=== PATIENT | male | born 1955 | race Caucasian/White ===

== ENCOUNTER 2023-02-04 08:43 | Outpatient (OUT) | payer MEDICARE, SELFPAY ==
[2023-02-04 10:10] LABS: Alanine Aminotransferase 34 U/L (16-63); Albumin Globulin Ratio 1.2; Albumin Level 3.7 g/dL (3.4-5.0); Alkaline Phosphatase 92 U/L (46-116); Anion Gap 9.9; Aspartate Amino Transferase 29 U/L (15-37); BUN Creatinine Ratio 15.1; Bilirubin Total 1.1 mg/dL (0.2-1.0); Calcium 8.9 mg/dL (8.5-10.1); Carbon Dioxide 29.3 mmol/L (21.0-32.0); Chloride 105 mmol/L (98-107); Estimated GFR (African America >60 (>=60); Estimated GFR (Non-African Ame >60 (>=60); Glucose 92 mg/dL (74-106); Potassium 4.2 mmol/L (3.5-5.1); Sodium 140 mmol/L (136-145); Total Protein 6.7 g/dL (6.4-8.2)
== END 2023-02-04 08:44 | disposition home or self-care (01) ==
LOC: LAB 08:51
PROVIDERS: PCP Family Medicine; Visit Provider Family Medicine
DX: Z13.1 Encounter for screening for diabetes mellitus (principal)
CPT/HCPCS: 36415; 80053

== ENCOUNTER 2023-02-04 08:56 | Outpatient (OUT) | payer OTHER, SELFPAY ==
[2023-02-04 10:13] LABS: Chol HDL Ratio 2.5; Cholesterol 103 mg/dL (<=200); HDL Cholesterol 41 mg/dL (40-60); Triglycerides 35 mg/dL (<=150)
== END 2023-02-04 08:57 | disposition home or self-care (01) ==
LOC: LAB 08:59
PROVIDERS: PCP Family Medicine
DX: Z13.1 Encounter for screening for diabetes mellitus (principal); I25.10 Atherosclerotic heart disease of native coronary artery without angina pectoris; E78.5 Hyperlipidemia, unspecified
CPT/HCPCS: 36415; 80053; 80061

== ENCOUNTER 2023-12-28 15:23 | Emergency (ER) | payer OTHER, SELFPAY ==
[2023-12-28 15:28] VITALS: BP 167/77; PULSE 71; TEMP 36.6; O2SAT 99; BMI 32.9
--- NOTE | 2023-12-28 15:32 | CT_ITS ---
[address] [address] Patient Name: JT AVILEZ MRN: [id number] date: 1955 Sex: M Assigned Patient Location: ER Current Patient Location: ED.MAIN Accession/Order Number: [id number] Exam Date: 12/28/2023 15:42 Report Date: 12/28/2023 16:02 At the request of: SULEMA MARKHAM Procedure: CT head/brain wo con EXAM: CT scan of the head without contrast. Dose reduction technique used: Automated exposure control and/or adjustment of the mA and/or kV according to patient size and/or use of iterative reconstruction technique. REASON FOR EXAM: trauma COMPARISON: None FINDINGS: No intracranial hemorrhage, mass effect, midline shift, fractures or evidence of acute ischemic infarct. No hydrocephalus. Prominent cisterna magna. Intracranial atherosclerotic calcifications. Sinuses and mastoid air cells are clear. Remainder unremarkable. CT/CT head/brain wo con IMPRESSION: No acute intracranial abnormalities. Electronically authenticated by: DWAIN FALCON Date: 12/28/2023 16:02
--- NOTE | 2023-12-28 15:59 | ED_ITS ---
HPI HPI - Head Injury General Chief complaint: Head Injury Stated complaint: HEAD INJURY Time Seen by Provider: 12/28/23 15:26 Source: patient Mode of arrival: walk-in Limitations: no limitations History of Present Illness HPI Narrative: Patient presents ED after head injury. He said Us know up while things fell off of the shelf And landed on his head. He said the shelf was about 7 feet up and he is about 6 feet tall so he thinks it fell about a foot and landed on the top of his head and cut his head open. No loss of consciousness. He was able to grab a towel and then go next-door for somebody to bring him here to the emergency room. He denies any neck pain nausea vomiting. He got a little woozy when he stood up here to get into the bed. He thought maybe he he was on Plavix but he is not 100% sure if he is on a blood thinner. He is alert and oriented though this time Resting comfortably in the bed Related Data Home Medications ?Medication ?Instructions ?Recorded ?Confirmed aspirin 81 mg tablet,delayed 81 mg PO DAILY 12/28/23 12/28/23 release atorvastatin 80 mg tablet 80 mg PO DAILY 12/28/23 12/28/23 carvedilol 6.25 mg tablet 6.25 mg PO Q12H 12/28/23 12/28/23 Previous Rx's ?Medication ?Instructions ?Recorded oxycodone-acetaminophen 5 mg-325 1 tab PO Q6H #15 tabs 12/28/23 mg tablet (Percocet) Allergies Allergy/AdvReac Type Severity Reaction Status Date / Time tuna AdvReac Intermediate Anaphylaxis Uncoded 12/28/23 15:28 Opioid HPI Opioid Management Most Recent Pain and Opioid Data: No Data to Display Review of Systems ROS Status of ROS 10 or more systems reviewed and unremark able except as noted in history and below Exam Narrative Exam Narrative: General: alert, no acute distress Cardiovascular: regular rate and rhythm, normal peripheral perfusion. Respiratory: Lungs CTA, respirations non labored. Extremities: no deformity, no trauma. Neurological: oriented x 4, LOC appropriate for age. 4 cm laceration to the top of the scalp. No crepitus felt. Patient is neurologically intact. Bleeding is controlled. No cervical spine tenderness Constitutional Vital Signs, click to edit/add: Last Vital Signs Temp 97.8 F 12/28/23 15:28 Pulse 71 12/28/23 15:28 Resp 18 12/28/23 15:28 BP 167/77 H 12/28/23 15:28 Pulse Ox 99 12/28/23 15:28 O2 Del Method Room Air 12/28/23 15:28 Course Vital Signs Vital signs: Vital Signs Temperature 97.8 F 12/28/23 15:28 Pulse Rate 71 12/28/23 15:28 Respiratory Rate 18 12/28/23 15:28 Blood Pressure 167/77 H 12/28/23 15:28 Pulse Oximetry 99 12/28/23 15:28 Oxygen Delivery Method Room Air 12/28/23 15:28 Temperature 97.8 F 12/28/23 15:28 Pulse Rate 71 12/28/23 15:28 Respiratory Rate 18 12/28/23 15:28 Blood Pressure 167/77 H 12/28/23 15:28 Pulse Oximetry 99 12/28/23 15:28 Oxygen Delivery Method Room Air 12/28/23 15:28 MDM - Head Injury MDM Narrative Medical decision making narrative: Patient CT scan was negative for fracture or intracranial hemorrhage. 7 paolo were placed in the scalp laceration. Tetanus shot was updated. Patient instructed to follow-up in 7 to 10 days for staple removal. Take Tylenol Motrin for headache, Percocet was called into the pharmacy for headache pain. Monitor for any neurological changes and return to the ER if worsening symptoms vomiting confusion vision changes or any other concerns. Patient is comfortable care pl an for home. Differential Diagnosis Differential diagnosis: Likely concussion without loss of consciousness, epidural hematoma, closed head injury, subarachnoid hematoma, postconcussion syndrome, subdural hematoma and concussion with loss of consciousness Imaging Data CT scan - head: Radiologist's impression: ITS Impressions Head CT 12/28/23 15:32 IMPRESSION: No acute intracranial abnormalities. Electronically authenticated by: DWAIN FALCON Date: 12/28/2023 16:02 Discharge Plan Discharge Stand Alone Forms: Work/School Release, Portal Instructions Chief Complaint: Head Injury Clinical Impression: Laceration of scalp, Head injury Patient Disposition: Home, Self-Care Time of Disposition Decision: 16:25 Condition: Good Mode of Transportation: Private Vehicle Prescriptions / Home Meds: New oxycodone-acetaminophen [Percocet] 5-325 mg tablet 1 tab PO Q6H Qty: 15 0RF No Action aspirin 81 mg tablet,delayed release (DR/EC) 81 mg PO DAILY atorvastatin 80 mg tablet 80 mg PO DAILY carvedilol 6.25 mg tablet 6.25 mg PO Q12H Print Language: Georgian Instructions: Laceration (ED), Staple Care (ED) Referrals: [facility] [Primary Care Provider] - 1 week Procedures ED Laceration Laceration Laceration 1: Site: scalp Size (cm): 4 Description: linear and stellate Depth: simple, single layer Anesthetic used: with epi Anesthesia technique: local infiltration Amount (ml): 8 Pre-repair: wound explored, irrigated extensively and deep structures intact Skin layer closed with: other (Webb) Size (cm): other (Paolo) Number of sutures: 7
[2023-12-28] MEDS: LIDOCAINE HCL 1%-EPINEPHRINE 1:100,000 20 ML MDV INJ (16:10)
[2023-12-28] MEDS: ADACEL DIPH,PERTUSS(ACELL),TET VAC/PF 0.5 ML ADULT SYRINGE IM (16:33)
== END 2023-12-28 16:44 | disposition home or self-care (01) ==
PROVIDERS: Emergency Provider Emergency Medicine; PCP Family Medicine
DX: S01.01XA Laceration without foreign body of scalp, initial encounter (principal); Z23 Encounter for immunization; W20.8XXA Other cause of strike by thrown, projected or falling object, initial encounter
CPT/HCPCS: 12002; 70450; 90471; 90715; 99284

== ENCOUNTER 2024-01-05 08:49 | Emergency (ER) | payer OTHER, SELFPAY ==
[2024-01-05 08:52] VITALS: BP 129/80; PULSE 75; TEMP 36.6; O2SAT 99; BMI 30.4
--- NOTE | 2024-01-05 09:02 | ED.WOUNDLAC1 ---
HPI - Wound/Laceration General Chief Complaint: Wound/Laceration Stated Complaint: SUTURE REMOVAL Time Seen by Provider: 01/05/24 08:55 Source: patient Mode of arrival: walk-in Limitations: no limitations History of Present Illness HPI narrative: Patient presents to ED for worse staple removal. He was here about a week ago after Something fell on his head and he received paolo. It has been healing well no tenderness no purulent drainage no fevers. He is just here for the staple removal. No other complaints at this time. Related Data Home Medications ?Medication ?Instructions ?Recorded ?Confirmed aspirin 81 mg tablet,delayed 81 mg PO DAILY 12/28/23 12/28/23 release atorvastatin 80 mg tablet 80 mg PO DAILY 12/28/23 12/28/23 carvedilol 6.25 mg tablet 6.25 mg PO Q12H 12/28/23 12/28/23 Previous Rx's ?Medication ?Instructions ?Recorded oxycodone-acetaminophen 5 mg-325 1 tab PO Q6H #15 tabs 12/28/23 mg tablet (Percocet) Allergies Allergy/AdvReac Type Severity Reaction Status Date / Time tuna AdvReac Intermediate Anaphylaxis Uncoded 12/28/23 15:28 Review of Systems ROS Narrative Negative unless otherwise stated above in HPI Exam Narrative Exam Narrative: General: alert, no acute distress Cardiovascular: regular rate and rhythm, normal peripheral perfusion. Respiratory: Lungs CTA, respirations non labored. Extremities: no deformity, no trauma. Neurological: oriented x 4, LOC appropriate for age. Beaver in place in the scalp. Wound is well-healing no surrounding erythema no purulent drainage Constitutional Vital Signs, click to edit/add: Last Vital Signs Temp 97.8 F 01/05/24 08:52 Pulse 75 01/05/24 08:52 Resp 18 01/05/24 08:52 BP 129/80 01/05/24 08:52 Pulse Ox 99 01/05/24 08:52 O2 Del Method Room Air 01/05/24 08:52 Course Vital Signs Vital signs: Vital Signs Temperature 97.8 F 01/05/24 08:52 Pulse Rate 75 01/05/24 08:52 Respiratory Rate 18 01/05/24 08:52 Blood Pressure 129/80 01/05/24 08:52 Pulse Oximetry 99 01/05/24 08:52 Oxygen Delivery Method Room Air 01/05/24 08:52 Temperature 97.8 F 01/05/24 08:52 Pulse Rate 75 01/05/24 08:52 Respiratory Rate 18 01/05/24 08:52 Blood Pressure 129/80 01/05/24 08:52 Pulse Oximetry 99 01/05/24 08:52 Oxygen Delivery Method Room Air 01/05/24 08:52 Discharge Plan Discharge Stand Alone Forms: Work/School Release, Portal Instructions Chief Complaint: Wound/Laceration Clinical Impression: Encounter for removal of paolo Patient Disposition: Home, Self-Care Time of Disposition Decision: 08:59 Mode of Transportation: Private Vehicle Prescriptions / Home Meds: No Action aspirin 81 mg tablet,delayed release (DR/EC) 81 mg PO DAILY atorvastatin 80 mg tablet 80 mg PO DAILY carvedilol 6.25 mg tablet 6.25 mg PO Q12H oxycodone-acetaminophen [Percocet] 5-325 mg tablet 1 tab PO Q6H Qty: 15 0RF Print Language: Cameroonian Instructions: Stitches Removal (ED) Referrals: [facility] [Primary Care Provider] - 1 week Procedures ED Procedure Instructions Procedures Procedures: Beaver removed without difficulty patient tolerated well
== END 2024-01-05 09:14 | disposition home or self-care (01) ==
PROVIDERS: Emergency Provider Emergency Medicine; PCP Family Medicine
DX: S01.01XD Laceration without foreign body of scalp, subsequent encounter (principal); W22.8XXA Striking against or struck by other objects, initial encounter
CPT/HCPCS: 99281

== ENCOUNTER 2024-01-14 06:50 | Outpatient (OUT) | payer OTHER, SELFPAY ==
--- OUTSIDE RECORDS SUMMARY | 2024-01-14 06:54 | XMS_ITS | CCD ---
Author Organization [facility] Care Team Providers Care Development Coach Name Role Phone CARMICHAEL-KOLP, JENNA Unavailable Unavailab le CARMICHAEL-KOLP, JENNA Unavailable Unavailab le LYSTER, FRANKI Unavailable Unavailable CARMICHAEL-KOLP, JENNA Unavailable Unavailab le Carmichael Kolp, Jenna A Unavailable Unavail able Unavailable Unavailable MIRTHA, DR BULLOCK Primary Care Unavailable AIDE NEWTON Admitting Unavailable AIDE NE[place]ON Attending Unavailable LAMAR, AIDE Consulting Unavailable LYSTER, DR DOAN Attending Unavailable LYSTER, DR DOAN Consulting Unavailable MISC, DR BULLOCK Primary Care Unavailable LYSTER, DR DOAN Admitting Unavailable LYSTER, DR DOAN Consulting Unavailable MISC, DR BULLOCK Primary Care Unavailable LYSTER, DR DOAN Admitting Unavailable LYSTER, DR DOAN Attending Unavailable Carmichael Kolp, Dr. Jenna Villalpando Primary Care U tarun LEON, Dr. FRANKI MARX Attending Unavail able LYSTER, Dr. FRANKI MARX Referring Unavail able Carmichael Kolp, Dr. Jenna Villalpando Primary Care U tarun Webster, Dr. York Attending Unavailable Darin, Dr. York Referring Unavailable Carmichael Kolp, Jenna Duong Unavailable [phone] Zaheer Epps MD Primary Care Provider JOSE CARLOS WEBSTER Attending Unavailable ZAHEER EPPS Primary Care Unavailab ZAHEER Carty Attending Unavailable Allergies Allergy Classification Reported Allergen(s) Allergy Type Date of Onset Reaction(s) Facility (7 sources) tuna, unspecified Allergy to substance (finding) [facility] 600 DO Work Phone: (2 sources) Tuna Oil; Translations: [TUNA OIL] Propensity to adverse reactions [address] [place] [address] Medications Current Medications Medication Drug Class(es) Dates Sig (Normalized) Sig (Original) aspirin 81 mg delayed release oral tablet (7 sources) Platelet Aggregation Inhibitor, Nonsteroidal Anti-inflammatory Drug Start: 02-16-2023 take 1 tablet by mouth once daily aspirin 81 mg EC tablet Indications: History of [place] (myocardial infarction) , History of PTCA 2 Take 1 tablet (81 mg) by mouth once daily. 90 tablet 0 02/16/2023 Active Start: 06-17-2021 take 1 tablet by neeru th once daily Aspirin 81 MG Oral Tablet Delayed Release TAKE 1 TABLET BY MOUTH DAILY Quantity: 90 Refills: 3 Ordered: 29-Jan-2022 Jose Carlos Webster MD Start : 17-Jun-2021 Active atorvastatin 80 mg oral tablet (9 sources) HMG-CoA Reductase Inhibitor Start: 02-16-2023 End: 03-10-2024 take 1 tablet by mouth once daily at bedtime atorvastatin (Lipitor) 80 mg tablet Indications: History of PTCA 2 , Hyperlipidemia, unspecified hyperlipidemia type Take 1 tablet (80 mg) by mouth once daily at bedtime. 90 tablet 3 03/11/2023 03/10/2024 Active Start: 07-02-2015 take 1 tablet by neeru th at bedtime Atorvastatin Calcium 80 MG Oral Tablet TAKE 1 TABLET AT BEDTIME. Quantity: 90 Refills: 3 Ordered: 29-Jan-2022 Jose Carlos Webster MD Start : 02-Jul-2015 Active carvedilol 6.25 mg oral tablet (9 sources) alpha-Adrenergic Kyra, beta-Adrenergic Kyra Start: 07-02-2015 End: 03-10-2024 take 1 tablet by mouth twice daily carvedilol (Coreg) 6.25 mg tablet Indications: Atherosclerosis of coronary artery, unspecified vessel or lesion type, unspecified whether angina present, unspecified whether ely shoshone or transplanted heart Take 1 tablet (6.25 mg) by mouth 2 times a day. 180 tablet 3 03/11/2023 03/10/2024 Active nitroglycerin 0.4 mg sublingual tablet (8 sources) Nitrate Vasodilator Start: 07-02-2015 nitroglycerin (Nitrostat) 0.4 mg SL tablet DISSOLVE 1 (ONE) TABLET UNDER THE TONGUE NEEDED FOR CHEST PAIN. MA 0 07/02/2015 Active Start: 07-02-2015 Nitroglycerin 0.4 MG Sublingual Tablet Sublingual DISSOLVE 1 (ONE) TABLET UNDER THE TONGUE NEEDED FOR CHEST PAIN. MA Quantity: 25 Refills: 11 Ordered: 29-Jan-2022 Jose Carlos Webster MD Start : 02-Jul-2015 Active Completed/Discontinued Medications Medication Drug Class(es) Dates Sig (Normalized) Sig (Original) clopidogrel 75 mg oral tablet (8 sources) P2Y12 Platelet Inhibitor Start: 04-12-2017 End: 03-11-2023 take 1 tablet by mouth once daily clopidogrel (Plavix) 75 mg tablet Take 1 tablet (75 mg) by mouth once daily. 0 04/12/2017 03/11/2023 Discontinued (Other) Krill Oil Plus CAPS (1 source) Start: 07-12-2015 Krill Oil Plus CAPS Quantity: 0 Refills: 0 Ordered: 12-Jul-2015 DO Start : 12-Jul-2015 Active prasugrel 10 mg oral tablet (1 source) P2Y12 Platelet Inhibitor Start: 07-02-2015 take 1 tablet by mouth once daily Effient 10 MG Oral Tablet TAKE 1 TABLET EVERY DAY Quantity: 30 Refills: 0 Ordered: 02-Jul-2015 DO Start : 02-Jul-2015 Active traMADol hydrochloride 50 mg oral tablet (1 source) Opioid Agonist Start: 05-19-2017 take 1 tablet by mouth at bedtime as needed traMADol HCl - 50 MG Oral Tablet Take 1 tab at bedtime as needed. Quantity: 20 Refills: 0 Ordered: 19-May-2017 Jenna Luque MD Start : 19-May-2017 Active Problems Active Problems Problem Classification Problem Date Documented Date Episodic/Chronic Acute myocardial infarction (9 sources) Myocardial infarction in recovery phase; Translations: [Subendocardial infarction, initial episode of care] Onset: 01-06-2021 Chronic Coronary atherosclerosis and other heart disease (20 sources) Atherosclerotic heart disease of ely shoshone coronary artery without angina pectoris; Translations: [Coronary atherosclerosis] Onset: 04-12-2017 Chronic Coronary atherosclerosis and other heart disease (9 sources) Post percutaneous transluminal coronary angioplasty; Translations: [Percutaneous transluminal coronary angioplasty status] Onset: 02-15-2023 Episodic Coronary atherosclerosis and other heart disease (1 source) Coronary atherosclerosis and other heart disease Onset: 04-12-2017 Disorders of lipid metabolism (16 sources) Hyperlipidemia; Translations: [Other and unspecified hyperlipidemia] Onset: 06-06-2021 Chronic Other nutritional; endocrine; and metabolic disorders (7 sources) Obesity; Translations: [Obesity, unspecified] Chronic Other nutritional; endocrine; and metabolic disorders (1 source) Body mass index 30+ - obesity; Translations: [Body Mass Index 30.0-30.9, adult] Chronic Other nutritional; endocrine; and metabolic disorders (1 source) Overweight; Translations: [Overweight] Episodic Other screening for suspected conditions (not mental disorders or infectious disease) (7 sources) Patient encounter status; Translations: [Special screening for malignant neoplasms of colon] Episodic Unclassified (2 sources) Athscl heart disease of ely shoshone coronary artery w/o ang pctrs / I25.10(ICD-9) Onset: 04-12-2017 Unclassified (2 sources) Pain in right shoulder / M25.511(ICD-9) Onset: 02-15-2017 Viral infection (1 source) COVID-19; Translations: [COVID-19] Onset: 01-06-2021 Past or Other Problems Problem Classification Problem Date Documented Da te Episodic/Chronic Other aftercare (1 source) 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; Translations: [OTH SEARCH DIRECTOR CURRENT DRUG THERAPY] Onset: 01-06-2021 Episodic Other lower respiratory disease (3 sources) Cough; Translations: [COUGH] Onset: 12-24-2020 Episodic Other non-traumatic joint disorders (6 sources) Shoulder pain; Translations: [Pain in joint, shoulder region] Resolved: 06-17-2021 Episodic Other non-traumatic joint disorders (1 source) Pain in right shoulder; Translations: [Right shoulder pain] Resolved: 06-17-2021 Episodic Other upper respiratory infections (1 source) Acute upper respiratory infection, unspecified; Translations: [ACUTE UP RESPIRATORY INFECTION UNS] Onset: 01-06-2021 Episodic Residual codes; unclassified (7 sources) History of chest pain; Translations: [Personal history of other specified diseases] Resolved: 10-15-2016 Episodic Unclassified (1 source) Pain in right shoulder; Translations: [Pain in right shoulder] Onset: 02-15-2017 Unclassified (6 sources) Never smoked tobacco; Translations: [Never a smoker] Unclassified (1 source) Onset: 03-11-2023 03-11-2023 Results Test Name Value Interpretation Reference Range Facility Office Visit (Cardiology)on 01-29-2022 Follow-up visit Diagnoses/Problems Assessed Atherosclerosis of coronary artery (414.00) (I25.10) History of [place] (myocardial infarction) (412) (I25.2) History of PTCA 2 (V45.82) (Z98.61) Hyperlipidemia (272.4) (E78.5) Class 1 obesity with body mass index (BMI) of 30.0 to 30.9 in adult (278.00,V85.30) (E66.9,Z68.30) Orders Atherosclerosis of coronary artery Renew: Aspirin 81 MG Oral Tablet Delayed Release; TAKE 1 TABLET BY MOUTH DAILY Renew: Carvedilol 6.25 MG Oral Tablet; one pill twice daily Atherosclerosis of coronary artery, Hyperlipidemia ALT - Alanine Aminotransferase, Serum; Status:Active - Retrospective Authorization; Requested for:29Jan2023; AST; Status:Active - Retrospective Authorization; Requested for:29Jan2023; Lipid Panel; Status:Active - Retrospective Authorization; Requested for:[id number]; Class 1 obesity with body mass index (BMI) of 30.0 to 30.9 in adult Healthy Weight Tips; Status:Complete - Retrospective Authorization; Done: 29Jan2022 Hyperlipidemia Renew: Atorvastatin Calcium 80 MG Oral Tablet; TAKE 1 TABLET AT BEDTIME PMH: History of chest pain Renew: Nitroglycerin 0.4 MG Sublingual Tablet Sublingual (Nitrostat); DISSOLVE 1 (ONE) TABLET UNDER THE TONGUE NEEDED FOR CHEST PAIN. MA Patient Instructions Please bring all medicines, vitamins, and herbal supplements with you when you come to the office. Prescriptions will not be filled unless you are compliant with your follow up appointments or have a follow up appointment scheduled as per instruction of your physician. Refills should be requested at the time of your visit. follow up in 1 year Chief Complaint JT GLYNN is being seen for a 6 month follow-up of. History of Present Illness Patient is new to this provider, he has atherosclerotic ely shoshone vessel coronary artery disease and risk factors, previously seen in June 2021. Interval review of systems is negative for chest discomfort pressure tightness heaviness palpitations lightheadedness orthopnea paroxysmal nocturnal dyspnea dependent edema or claudication TIA or CVA type symptoms or bleeding diathesis Blood pressure initially elevated, recheck blood pressure at target Reports compliance to medications BMI is excessive, but patient is following a heart healthy lifestyle. Laboratory data reviewed in October 2021 HDL was 45 and LDL 72 Assessment: 1. Hypertension-at target, continue carvedilol at current doses 2. Atherosclerotic ely shoshone vessel coronary artery disease, status post PCI and stent to the left anterior descending artery and right coronary artery June 2015, 80% ostial circumflex disease is being managed medically, patient remains class I. Cardiac catheterization June 2015-proximal and mid LAD 95% and 90% stenosis proximal and ostial circumflex 80% stenosis mid RCA 95% stenosis successful PCI of mid RCA with resolute drug-eluting stent postdilated with 4.5 mm balloon to high pressures successful PCI of proximal and mid LAD with deployment of 30 mm resolute drug-eluting stent postdilated with 3.5 mm noncompliant balloon at high pressure without complication. 1 3. Hyperlipidemia-on high intensity statin 4.Averages 8 cups of coffee per day 5. Never a smoker 6. EKG June 2015 sinus rhythm Q waves in lead III normal intervals 1 7. Stress Myoview September 2015-normal, Leija treadmill score 7 LVEF 67% normal perfusion transient ischemic dilatation normal at 1.01, 9.8 METS, 88% age-predicted maximum heart rate 8. Echocardiogram 2015 LVEF 60 to 65% impaired relaxation pattern of LV diastolic filling left atrial volume index 26.7 mL/m LV wall thickness and cavity size normal RV systolic function normal valves grossly normal RVSP 22 mmHg 1 Recommendations: 1. Continue current medical regimen 2. Follow-up in 1 year sooner if interval problems arise 3. Comprehensive profile and lipid profile prior to next visit 4. Heart healthy lifestyle was encouraged 1 Amended By: Jose Carlos Webster; Mar 01 2022 12:45 PM ESTSurgical History Problems History of Ankle Surgery History of Cath Stent Placement Number Of Stents Placed: Denied: History of Complete colonoscopy History of Percutaneous transluminal coronary angioplasty History of Surgery history of stent indications Past Medical History Problems History of chest pain (V13.89) (Z87.898) Resolved Date: 15 Oct 2016 History of NSTEMI, initial episode of care (410.71) (I21.4) History of Right shoulder pain (719.41) (M25.511) Resolved Date: 17 Jun 2021 Current Meds Medication NameInstruction Aspirin 81 MG Oral Tablet Delayed ReleaseTAKE 1 TABLET BY MOUTH DAILY Atorvastatin Calcium 80 MG Oral TabletTAKE 1 TABLET AT BEDTIME. Carvedilol 6.25 MG Oral Tabletone pill twice daily Clopidogrel Bisulfate 75 MG Oral TabletTAKE 1 TABLET BY MOUTH EVERY DAY Nitrostat 0.4 MG Sublingual Tablet SublingualDISSOLVE 1 (ONE) TABLET UNDER THE TONGUE NEEDED FOR CHEST PAIN. MA Allergies Medication No Known Drug Allergies Recorded (more content not included)... Normal [facility] Tobacco Screening.on 022 Adult depression screening assessment No [facility] [employer] [facility] 250 DO Work Phone: Fall risk assessment a) No falls within the last year [facility] 250 DO Work Phone: Tobacco use status [facility] b) No [facility] 250 DO Work Phone: LIPID PROFILEon 11-05-2021 CHOL-HDL RATIO NORM SEE BELOW Normal [facility] Comment on above: Result Comment: 3.3 - 4.4 LOW RISK 4.4 - 7.1 AVERAGE RISK 7.1 - 11.0 MODERATE RISK >11.0 HIGH RISK Performed By: #### A ST, ALT, LIPID #### [facility] [address] [address] [address] Patricia Cifuentes Cholesterol [Mass/Vol] 113 mg/dL Normal <=200 [facility] Comment on above: Performed By: #### A ST, ALT, LIPID #### [facility] [address] [address] [address] Patricia Cifuentes Cholesterol in HDL [Mass/Vol] 45 mg/dL Normal 40-60 [facility] Comment on above: Performed By: #### A ST, ALT, LIPID #### [facility] [address] [address] [address] Patricia Cifuentes Cholesterol in LDL [Mass/Vol] 60.8 mg/dL Normal [facility] Comment on above: Performed By: #### A ST, ALT, LIPID #### [facility] [address] [address] [address] Patricia Cifuentes Cholesterol.total/Ch olesterol in HDL [Mass ratio] 2.5 {ratio} Normal [facility] Comment on above: Performed By: #### A ST, ALT, LIPID #### [facility] [address] [address] [address] Patricia Cifuentes HDL NORMAL > or = 60 mg/dl - LO W CARDIOVASCULAR RISK <40 mg/dl - HIGH CARDIOVASCULAR RISK Normal [facility] Comment on above: Performed By: #### A ST, ALT, LIPID #### [facility] [address] [address] [address] Patricia Cifuentes LDL CALC NORMAL SEE BELOW Normal [facility] Comment on above: Result Comment: <100 mg/dl OPTIMAL 100 - 129 mg/dl NEAR OR ABOVE OPTIMAL 130 - 159 mg/dl BORDERLINE HIGH 160 - 189 mg/dl HIGH >190 mg/dl VERY HIGH Performed By: #### A ST, ALT, LIPID #### [facility] [address] [address] [address] Patricia Cifuentes Triglyceride [Mass/Vol] 36 mg/dL Normal <=150 [facility] Comment on above: Performed By: #### A ST, ALT, LIPID #### [facility] [address] [address] [address] Patricia Cifuentes VLDL CALC 7.2 mg/dL Normal [facility] Comment on above: Performed By: #### A ST, ALT, LIPID #### [facility] [address] [address] [address] Patricia JUNIOROToryley 11-05-2021 AST [Catalytic activity/Vol] 15 U/L Normal 15-37 [facility] Comment on above: Performed By: #### A ST, ALT, LIPID #### [facility] [address] [place] [address] Dr. Patricia Cifuentes SGPTon 11-05-2021 ALT [Catalytic activity/Vol] 36 U/L Normal 16-63 [facility] Comment on above: Performed By: #### A ST, ALT, LIPID #### [facility] [address] [place] [address] Dr. Patricia Cifuentes Office Visit (Cardiology)on 06-17-2021 Follow-up visit Diagnoses/Problems Assessed Atherosclerosis of coronary artery (414.00) (I25.10) Hyperlipidemia (272.4) (E78.5) Never a smoker Class 1 obesity with body mass index (BMI) of 31.0 to 31.9 in adult (278.00,V85.31) (E66.9,Z68.31) Orders Atherosclerosis of coronary artery Start: Aspirin 81 MG Oral Tablet Delayed Release; TAKE 1 TABLET BY MOUTH DAILY Renew: Carvedilol 6.25 MG Oral Tablet; one pill twice daily Renew: Clopidogrel Bisulfate 75 MG Oral Tablet; TAKE 1 TABLET BY MOUTH EVERY DAY Atherosclerosis of coronary artery, Hyperlipidemia ALT - Alanine Aminotransferase, Serum; Status:Active - Retrospective Authorization; Requested for:[id number]; AST; Status:Active - Retrospective Authorization; Requested for:[id number]; Lipid Panel; Status:Active - Retrospective Authorization; Requested for:[id number]; Hyperlipidemia Renew: Atorvastatin Calcium 80 MG Oral Tablet; TAKE 1 TABLET AT BEDTIME SocHx: Never a smoker Tobacco Use Screening; Status:Complete; Done: [id number] Patient Instructions By signing my name below, IMissy RN,Scribe Please bring all medicines, vitamins, and herbal supplements with you when you come to the office. Prescriptions will not be filled unless you are compliant with your follow up appointments or have a follow up appointment scheduled as per instruction of your physician. Refills should be requested at the time of your visit. Chief Complaint JT GLYNN is being seen for a 6 month follow-up of. History of Present Illness Mr. Glynn is a 66-year-old male who is seen today for follow-up on his history of coronary disease. He presented in June 2015 with chest pain while he was on a cruise ship in [place]. He was initially life flighted to [facility] and then eventually life flighted to [facility]. While there he underwent cardiac catheterization and had intervention to the LAD into the right coronary arteries which both had significant stenosis. The circumflex was considered to have an ostial stenosis of 80% and he did not have intervention to the circumflex. Clinically he has done well. He has had a stress test done for follow-up after his intervention and there was no evidence for ischemia. Clinically he remained stable and has had no recurrence of any chest pain. He remains active. Indicates for what ever reason he did not get refills on atorvastatin apparently in error. He is not been on this apparently for the last 6 months. No complaints today. Physical exam: Neck: No carotid bruits are heard Lungs: Clear Heart: Regular rate and rhythm without murmurs or extra sounds Extremities: No edema Recommendation is continuation of current medications. He will get refills on his atorvastatin. He is encouraged to remain physically active and to continue to work on some weight loss. He is to return in 6 months for follow-up. Surgical History Problems History of Ankle Surgery History of Cath Stent Placement Number Of Stents Placed: Denied: History of Complete colonoscopy History of Percutaneous transluminal coronary angioplasty History of Surgery history of stent indications Past Medical History Problems History of chest pain (V13.89) (Z87.898) Resolved Date: 15 Oct 2016 History of NSTEMI, initial episode of care (410.71) (I21.4) History of Right shoulder pain (719.41) (M25.511) Current Meds Medication NameInstruction Atorvastatin Calcium 80 MG Oral TabletTAKE 1 TABLET EVERY DAY Carvedilol 6.25 MG Oral TabletTake 1 tablet twice daily Clopidogrel Bisulfate 75 MG Oral TabletTAKE 1 TABLET BY MOUTH EVERY DAY Nitrostat 0.4 MG Sublingual Tablet SublingualDISSOLVE 1 (ONE) TABLET UNDER THE TONGUE NEEDED FOR CHEST PAIN. MA Allergies Medication No Known Drug Allergies Recorded By: Dory Church; 07/12/2015 8:28:25 AM NonMedication Tuna Recorded By: Dory Church; 07/12/2015 8:28:12 AM Social History Problems Caffeine use (V49.89) (Z78.9) 8 cups of coffee per day. Never a smoker No alcohol use No illicit drug use Review of Systems Constitutional: not feeling tired. Cardiovascular: no intermittent leg claudication and as noted in HPI. Respiratory: no cough and no shortness of breath. Gastrointestinal: no change in bowel habits and no blood in stools. Integumentary: no skin rashes. Neurological: no seizures and no frequent falls. All other systems have been reviewed and are negative for complaint. Vitals Vital Signs Recorded: [id number] 08:07AM Heart Rate66, R Brachial Artery [id number], RUE, Sitting [id number], RUE, Sitting Height5 ft 9 in [id number] lb 6 oz BMI Yofxpznalv14.51 kg/m2 BSA Calculated2.12 Tobacco Useb) No Fall Screeninga) No falls within the last year Signatures Electronically signed by : Franki Leon DO; Jun 17 2021 8:27AM EST (Author) Normal [employer] Tobacco Screening.on 022 Fall risk assessment a) No falls within the last year [facility] 250 DO Work Phone: Tobacco use status CP b) No [facility] 250 DO Work Phone: BUNon 06-06-2021 Urea nitrogen [Mass/Vol] 10.0 mg/dL Normal 9.0-20.0 [facility] Comment on above: Performed By: #### C ANGELES, ELEC, AST, LIPID, BUN, ALT #### [facility] [address] [place] [address] Dr. Patricia Cifuentes CREATININEon 06-06-2021 Creatinine [Mass/Vol] 1.03 mg/dL Normal 0.66-1.25 [facility] Comment on above: Performed By: #### C ANGELES, ELEC, AST, LIPID, BUN, ALT #### [facility] [address] [address] [address] Patricia Cifuentes EGFR-AF BELIZEAN >60 Normal >=60 [facility] Comment on above: Performed By: #### C ANGELES, ELEC, AST, LIPID, BUN, ALT #### [facility] [address] [address] [address] Patricia Cifuentes EGFR-NON AF BELIZEAN >60 Normal >=60 [facility] Comment on above: Performed By: #### C ANGELES, ELEC, AST, LIPID, BUN, ALT #### [facility] [address] [address] [address] Patricia Cifuentes ELECTROLYTESon 06-06-2021 Anion gap [Moles/Vol] 10.8 mmol/L Normal [facility] Comment on above: Performed By: #### C ANGELES, ELEC, AST, LIPID, BUN, ALT #### [facility] [address] [address] [address] Patricia Cifuentes Chloride [Moles/Vol] 106 mmol/L Normal 98-107 [facility] Comment on above: Performed By: #### C ANGELES, ELEC, AST, LIPID, BUN, ALT #### [facility] [address] [address] [address] Patricia Cifuentes CO2 [Moles/Vol] 27.7 mmol/L Normal 22.0-30.0 [facility] Comment on above: Performed By: #### C ANGELES, ELEC, AST, LIPID, BUN, ALT #### [facility] [address] [address] [address] Patricia Cifuentes Potassium [Moles/Vol] 4.5 mmol/L Normal 3.4-5.0 [facility] Comment on above: Performed By: #### C ANGELES, ELEC, AST, LIPID, BUN, ALT #### [facility] [address] [place] [address] Dr. Patricia Cifuentes Sodium [Moles/Vol] 140 mmol/L Normal 137-145 [facility] Comment on above: Performed By: #### C ANGELES, ELEC, AST, LIPID, BUN, ALT #### [facility] [address] [place] [address] Dr. Patricia Cifuentes LIPID PROFILEon 06-06-2021 CHOL-HDL RATIO NORM SEE BELOW Normal [facility] Comment on above: Result Comment: 3.3 - 4.4 LOW RISK 4.4 - 7.1 AVERAGE RISK 7.1 - 11.0 MODERATE RISK >11.0 HIGH RISK Performed By: #### C ANGELES, ELEC, AST, LIPID, BUN, ALT #### [facility] [address] [place] [address] Dr. Patricia Cifuentes Cholesterol [Mass/Vol] 214 mg/dL Critically high <=200 [facility] Comment on above: Performed By: #### C ANGELES, ELEC, AST, LIPID, BUN, ALT #### [facility] [address] [place] [address] Dr. Patricia Cifuentes Cholesterol in HDL [Mass/Vol] 47 mg/dL Normal [facility] Comment on above: Performed By: #### C ANGELES, ELEC, AST, LIPID, BUN, ALT #### [facility] [address] [address] [address] Patricia Cifuentes Cholesterol in LDL [Mass/Vol] 146.6 mg/dL Normal [facility] Comment on above: Performed By: #### C ANGELES, ELEC, AST, LIPID, BUN, ALT #### [facility] [address] [address] [address] Patricia Cifuentes Cholesterol.total/Ch olesterol in HDL [Mass ratio] 4.6 {ratio} Normal [facility] Comment on above: Performed By: #### C ANGELES, ELEC, AST, LIPID, BUN, ALT #### [facility] [address] [address] [address] Patricia Cifuentes HDL NORMAL > or = 60 mg/dl - LO W CARDIOVASCULAR RISK <40 mg/dl - HIGH CARDIOVASCULAR RISK Normal [facility] Comment on above: Performed By: #### C ANGELES, ELEC, AST, LIPID, BUN, ALT #### [facility] [address] [address] [address] Patricia Cifuentes LDL CALC NORMAL SEE BELOW Normal [facility] Comment on above: Result Comment: <100 mg/dl OPTIMAL 100 - 129 mg/dl NEAR OR ABOVE OPTIMAL 130 - 159 mg/dl BORDERLINE HIGH 160 - 189 mg/dl HIGH >190 mg/dl VERY HIGH Performed By: #### C ANGELES, ELEC, AST, LIPID, BUN, ALT #### [facility] [address] [address] [address] Patricia Cifuentes Triglyceride [Mass/Vol] 102 mg/dL Normal <=150 [facility] Comment on above: Performed By: #### C ANGELES, ELEC, AST, LIPID, BUN, ALT #### [facility] [address] [address] [address] Patricia Cifuentes VLDL CALC 20.4 mg/dL Normal [facility] Comment on above: Performed By: #### C ANGELES, ELEC, AST, LIPID, BUN, ALT #### [facility] [address] [address] [address] Patricia Cifuentes SGOTon 06-06-2021 AST [Catalytic activity/Vol] 19 U/L Normal 17-59 [facility] Comment on above: Performed By: #### C ANGELES, ELEC, AST, LIPID, BUN, ALT #### [facility] [address] [place] [address] Dr. Patricia Cifuentes SGPTon 06-06-2021 ALT [Catalytic activity/Vol] 28 U/L Normal 21-72 [facility] Comment on above: Performed By: #### C AGNELES, ELEC, AST, LIPID, BUN, ALT #### [facility] [address] [place] [address] Dr. Patricia Cifuentes CBC AUTO DIFFon 12-24-2020 BASO # 0.0 103/ul Normal 0.0-0.1 [facility] Comment on above: Performed By: #### C ANGELES, ELEC, AST, LIPID, BUN, ALT #### [facility] [address] [place] [address] Dr. Patricia Cifuentes Basophils/100 WBC (Bld) 0.2 % Normal 0.2-2.0 [facility] Comment on above: Performed By: #### C ANGELES, ELEC, AST, LIPID, BUN, ALT #### [facility] [address] [place] [address] Dr. Patricia Cifuentes EO # 0.0 103/ul Normal 0.0-0.7 [facility] Comment on above: Performed By: #### C ANGELES, ELEC, AST, LIPID, BUN, ALT #### [facility] [address] [place] [address] Dr. Patricia Cifuentes Eosinophils/100 WBC (Bld) 0.2 % Critically low 0.9-7.0 [facility] Comment on above: Performed By: #### C ANGELES, ELEC, AST, LIPID, BUN, ALT #### [facility] [address] [place] [address] Dr. Patricia Cifuentes Erythrocyte distribution width (RBC) [Ratio] 12.8 % Normal 11.0-15.0 [facility] Comment on above: Performed By: #### C ANGELES, ELEC, AST, LIPID, BUN, ALT #### [facility] [address] [place] [address] Dr. Patricia Cifuentes Hematocrit (Bld) [Volume fraction] 43.7 % Normal 42.0-54.0 [facility] Comment on above: Performed By: #### C ANGELES, ELEC, AST, LIPID, BUN, ALT #### [facility] [address] [place] [address] Dr. Patricia Cifuentes Hemoglobin (Bld) [Mass/Vol] 14.6 g/dL Normal 14.0-18.0 [facility] Comment on above: Performed By: #### C ANGELES, ELEC, AST, LIPID, BUN, ALT #### [facility] [address] [place] [address] Dr. Patricia Cifuentes IG # 0.02 10e3/ul Normal 0.00-0.03 [facility] Comment on above: Performed By: #### C ANGELES, ELEC, AST, LIPID, BUN, ALT #### [facility] [address] [place] [address] Dr. Patricia Cifuentes IG % 0.4 % Normal 0.0-0.5 [facility] Comment on above: Performed By: #### C ANGELES, ELEC, AST, LIPID, BUN, ALT #### [facility] [address] [place] [address] Dr. Patricia Cifuentes LYMPH # 0.9 103/ul Critically low 1.2-3.8 [facility] Comment on above: Performed By: #### C ANGELES, ELEC, AST, LIPID, BUN, ALT #### [facility] [address] [place] [address] Dr. Patricia Cifuentes Lymphocytes/100 WBC (Bld) 18.4 % Critically low 20.5-60.0 [facility] Comment on above: Performed By: #### C ANEGLES, ELEC, AST, LIPID, BUN, ALT #### [facility] [address] [place] [address] Dr. Patricia Cifuentes MANUAL DIFF REQ NO Normal [facility] Comment on above: Performed By: #### C ANGELES, ELEC, AST, LIPID, BUN, ALT #### [facility] [address] [place] [address] Dr. Patricia Cifuentes MCH (RBC) [Entitic mass] 30.9 pg Normal 25.9-34.0 [facility] Comment on above: Performed By: #### C ANGELES, ELEC, AST, LIPID, BUN, ALT #### [facility] [address] [place] [address] Dr. Patricia Cifuentes MCHC (RBC) [Mass/Vol] 33.4 g/dL Normal 29.9-35.2 [facility] Comment on above: Performed By: #### C ANGELES, ELEC, AST, LIPID, BUN, ALT #### [facility] [address] [place] [address] Dr. Patricia Cifuentes MCV (RBC) [Entitic vol] 92.4 fL Normal 80.0-94.0 [facility] Comment on above: Performed By: #### C ANGELES, ELEC, AST, LIPID, BUN, ALT #### [facility] [address] [place] [address] Dr. Patricia Cifuentes MONO # 0.5 103/ul Normal 0.3-0.8 [facility] Comment on above: Performed By: #### C ANGELES, ELEC, AST, LIPID, BUN, ALT #### [facility] [address] [place] [address] Dr. Patricia Cifuentes Monocytes/100 WBC (Bld) 11.1 % Normal 1.7-12.0 [facility] Comment on above: Performed By: #### C ANGELES, ELEC, AST, LIPID, BUN, ALT #### [facility] [address] [place] [address] Dr. Patricia Cifuentes NEUT # 3.4 103/ul Normal 1.4-6.5 [facility] Comment on above: Performed By: #### C ANGELES, ELEC, AST, LIPID, BUN, ALT #### [facility] [address] [place] [address] Dr. Patricia Cifuentes Neutrophils/100 WBC (Bld) 69.7 % Normal 43.0-75.0 [facility] Comment on above: Performed By: #### C ANGELES, ELEC, AST, LIPID, BUN, ALT #### [facility] [address] [place] [address] Dr. Patricia Cifuentes Platelet mean volume (Bld) [Entitic vol] 9.1 fL Critically low 9.5-13.5 [facility] Comment on above: Performed By: #### C ANGELES, ELEC, AST, LIPID, BUN, ALT #### [facility] [address] [place] [address] Dr. Patricia Cifuentes PLT 169 103/ul Normal 150-450 [facility] Comment on above: Performed By: #### C ANGELES, ELEC, AST, LIPID, BUN, ALT #### [facility] [address] [place] [address] Dr. Patricia Cifuentes RBC 4.73 106/ul Normal 4.70-6.10 [facility] Comment on above: Performed By: #### C ANGELES, ELEC, AST, LIPID, BUN, ALT #### [facility] [address] [place] [address] Dr. Patricia Cifuentes WBC 4.9 103/ul Normal 4.0-11.0 [facility] Comment on above: Performed By: #### C ANGELES, ELEC, AST, LIPID, BUN, ALT #### [facility] [address] [place] [address] Dr. Patricia Cifuentes PROF 14(COMP METB)on 021 Albumin [Mass/Vol] 3.1 g/dL Critically low 3.5-5.0 [facility] Comment on above: Performed By: #### C MP #### [facility] [address] [place] [address] Solo Tanner Albumin/Globulin [Mass ratio] 0.7 {ratio} Normal [facility] Comment on above: Performed By: #### C MP #### [facility] [address] [place] [address] Solo Flores ALP [Catalytic activity/Vol] 96 U/L Normal 38-126 [facility] Comment on above: Performed By: #### C MP #### [facility] [address] [place] [address] Solo Flores ALT [Catalytic activity/Vol] 31 U/L Normal 21-72 [facility] Comment on above: Performed By: #### C MP #### [facility] [address] [place], [place] [address] Solo Flores Anion gap [Moles/Vol] 11.2 mmol/L Normal [facility] Comment on above: Performed By: #### C MP #### [facility] [address] [id number] Solo Flores AST [Catalytic activity/Vol] 40 U/L Normal 17-59 [facility] Comment on above: Performed By: #### C MP #### [facility] [address] [id number] Solo Flores Bilirubin [Mass/Vol] 0.9 mg/dL Normal 0.2-1.3 [facility] Comment on above: Performed By: #### C MP #### [facility] [address] [id number] Solo Flores Calcium [Mass/Vol] 8.7 mg/dL Normal 8.4-10.2 [facility] Comment on above: Performed By: #### C MP #### [facility] [address] [id number] Solo Flores Chloride [Moles/Vol] 105 mmol/L Normal 98-107 [facility] Comment on above: Performed By: #### C MP #### [facility] [address] [id number] Solo Flores CO2 [Moles/Vol] 30.0 mmol/L Normal 22.0-30.0 [facility] Comment on above: Performed By: #### C MP #### [facility] [address] [id number] Solo Flores Creatinine [Mass/Vol] 1.00 mg/dL Normal 0.66-1.25 [facility] Comment on above: Performed By: #### C MP #### [facility] [address] [place], [place] [address] Solo Flores EGFR-AF BELIZEAN >60 Normal >=60 [facility] Comment on above: Performed By: #### C MP #### [facility] [address] [place], [place] [address] Solo Flores EGFR-NON AF BELIZEAN >60 Normal >=60 [facility] Comment on above: Performed By: #### C MP #### [facility] [address] [id number] Solo Flores Globulin (S) [Mass/Vol] 4.2 g/dL Normal [facility] Comment on above: Performed By: #### C MP #### [facility] [address] [id number] Solo Flores Glucose [Mass/Vol] 82 mg/dL Normal 74-106 [facility] Comment on above: Performed By: #### C MP #### [facility] [address] [place] [address] Solo Flores Potassium [Moles/Vol] 4.2 mmol/L Normal 3.4-5.0 [facility] Comment on above: Performed By: #### C MP #### [facility] [address] [place] [address] Solo Flores Protein [Mass/Vol] 7.3 g/dL Normal 6.1-8.2 [facility] Comment on above: Performed By: #### C MP #### [facility] [address] [place], [place] [id number] Solo Flores Sodium [Moles/Vol] 142 mmol/L Normal 137-145 [facility] Comment on above: Performed By: #### C MP #### [facility] [address] [place], [place] [address] Solo Flores Urea nitrogen [Mass/Vol] 13.0 mg/dL Normal 9.0-20.0 [facility] Comment on above: Performed By: #### C MP #### [facility] [address] [place], [place] [address] Solo Flores Urea nitrogen/Creatinine [Mass ratio] 13.0 mg/mg Normal [facility] Comment on above: Performed By: #### C MP #### [facility] [address] [place], [place] [address] Solo Flores SYMPTOMATIC COVID-19 ANTIGEN on 12-24-2020 EUA Statement SEE BELOW Normal [facility] Comment on above: Result Comment: This test has not been FDA cleared or approved, but has been authorized by the FDA under an Emergency Use Authorization (EUA) for use by authorized laboratories certified under CLIA that meet the requirements to perform moderate or high complexity testing. This test has been authorized only for the detection of proteins from SARS-CoV-2, not for any other viruses or pathogens. The emergency use of this test is authorized for the duration of the declaration that circumstances exist justifying the authorization of emergency use of in vitro diagnostic tests for detection and/or diagnosis of Covid-19 under section 564(b)(1) of the Act, 21 U.S.C. 360bbb-3(b)(1), unless the declaration is terminated or authorization is revoked sooner. Performed By: #### C ANGELES, ELEC, AST, LIPID, BUN, ALT #### [facility] [address] [place] [address] Dr. Patricia Cifuentes SARS-CoV-2 (COVID-19) RNA JÚNIOR+probe Ql (Unsp spec) Positive Critically abnormal NEGATIVE [facility] Comment on above: Performed By: #### C ANGELES, ELEC, AST, LIPID, BUN, ALT #### [facility] [address] [address] [address] Patricia Cifuentes ALT (SGPT)on 04-12-2017 Alanine aminotransferase (ALT) 36 U/L Normal 10-52 [facility] Comment on above: Performed By: #### 1 [id number] ####[facility] [address] [place] [address] AST (SGOT)on 04-12-2017 Aspartate aminotransferase (AST) 25 U/L Normal 13-39 [facility] Comment on above: Performed By: #### 1 [id number] ####[facility] [address] [place] [address] Creatinineon 04-12-2017 Creatinine 0.91 mg/dL Normal 0.50-1.30 [facility] Comment on above: Performed By: #### 1 [id number] ####[facility] [address] [place] [address] eGFR (MDRD) mL/min/{1.73_m2} Normal [facility] Comment on above: Result Comment: Inte rpretation for Chronic Kidney Disease:Stages 1&2 >60 Healthy or potential kidney damage.Mild decrease of GFR.Stage 3 30-59 Moderate decrease of GFR.Stage 4 15-29 Severe decrease of GFR.Stage 5 <15 Kidney failure or on dialysis. Performed By: #### 1 [id number] ####[facility] [address] [place] [address] Electrolyte Panelon 04-12-20 17 Anion gap 11 mmol/L Normal 10-20 [facility] Comment on above: Performed By: #### 1 [id number] ####[facility] [address] [place] [address] Bicarbonate (HCO3) 27 mmol/L Normal 21-32 [facility] Comment on above: Performed By: #### 1 [id number] ####[facility] [address] [place] [address] Chloride 105 mmol/L Normal 98-107 [facility] Comment on above: Performed By: #### 1 [id number] ####[facility] [address] [place] [address] Potassium molar conc 4.1 mmol/L Normal 3.5-5.1 [facility] Comment on above: Performed By: #### 1 [id number] ####[facility] [address] [place] [address] Sodium 139 mmol/L Normal 136-145 [facility] Comment on above: Performed By: #### 1 [id number] ####[facility] [address] [place] [address] Lipid Panelon 04-12-2017 Cholesterol 119 mg/dL Normal <200 [facility] Comment on above: Performed By: #### 1 [id number] ####[facility] [address] [facility] [place] [address] Cholesterol in VLDL mass conc 14 mg/dL Normal <30 [facility] Comment on above: Performed By: #### 1 [id number] ####[facility] [address] [place] [address] Cholesterol to HDL Ratio 3.1 {ratio} Normal [facility] Comment on above: Performed By: #### 1 [id number] ####[facility] [address] [place] [address] HDL Cholesterol 39 mg/dL Abnormal [facility] Comment on above: Result Comment: Norm al Mod Risk High Risk5-9 >48 42-48 <4210- 14 >45 40-45 <4015-19 >38 34-38 <34Adult >39 Performed By: #### 1 [id number] ####[facility] [address] [place] [address] LDL Cholesterol 66 mg/dL Normal <130 [facility] Comment on above: Performed By: #### 1 [id number] ####[facility] [address] [place] [address] Triglyceride 70 mg/dL Normal <150 [facility] Comment on above: Result Comment: 150- 199 Borderline [id number] High>500 Very High Performed By: #### 1 [id number] ####[facility] [address] [place] [address] Urea Nitrogenon 04-12-2017 Urea nitrogen 12 mg/dL Normal 6-23 [facility] Comment on above: Performed By: #### 1 [id number] ####[facility] [address] [place] [address] SHOULDER RT 2 OR MORE VIEWSo n 02-15-2017 SHOULDER RT 2 OR MORE VIEWS DATE OF EXAM: Feb 15 2017 11:14AMCLINICAL HISTORY/ Name: MARIANELA GLYNNUDY:SHOULDER RT 2 OR MORE VIEWS; 02/15/2017 11:14 amINDICATION:rt shoulder pain.COMPARISON:None.A CCESSION NUMBER(S):[id number] KIT CLINICIAN:JENNA FISHER:3 views of the right shoulder including AP , axillary and scapular Y-views were obtained.FINDINGS:Ther e is no radiographic evidence of acute fracture or dislocation identified. The joint spaces are well preserved without significant degenerative changes.CONCLUSION: IMPRESSION:1. No evidence of acute fracture or dislocation. Normal [facility] Vital Signs Date Time Vital Sign Value Performing Clinician Facility 03-11-2023 13:57-0400 Body height 177.8 cm Jose Carlos Webster MD Work Phone: [facility] 03-11-2023 13:57-0400 Body mass index (BMI) [Ratio] 29.56 kg/m2 Jose Carlos Webster MD Work Phone: [facility] 03-11-2023 13:57-0400 Body weight 93.44 kg Jose Carlos Webster MD Work Phone: [facility] 03-11-2023 13:57-0400 Diastolic blood pressure 88 mm[Hg] Jose Carlos Webster MD Work Phone: [facility] 03-11-2023 13:57-0400 Heart rate 84 /min Jose Carlos Webster MD Work Phone: [facility] 03-11-2023 13:57-0400 Systolic blood pressure 110 mm[Hg] Jose Carlos Webster MD Work Phone: [facility] 01-29-2022 11:14-0400 Diastolic blood pressure 82 mm[Hg] Jenna Estevez [facility] 250 DO Work Phone: 01-29-2022 11:14-0400 Systolic blood pressure 132 mm[Hg] Jenna Estevez [facility] 250 DO Work Phone: 01-29-2022 10:36-0400 Body height 177.8 cm Jenna Estevez [facility] 250 DO Work Phone: 01-29-2022 10:36-0400 Body mass index (BMI) [Ratio] 30.28 kg/m2 Jenna Estevez [facility] 250 DO Work Phone: 01-29-2022 10:36-0400 Body surface area Derived from formula 2.14 m2 Jenna Estevez [facility] 250 DO Work Phone: 01-29-2022 10:36-0400 Body weight 95.71 kg Jenna Carmichael [facility] [facility] DO Work Phone: 01-29-2022 10:36-0400 Diastolic blood pressure 92 mm[Hg] Jenna Carmichael [place] [facility] [facility] DO Work Phone: 01-29-2022 10:36-0400 Heart rate 60 /min Jenna Carmichael [facility] [address] DO Work Phone: 01-29-2022 10:36-0400 Systolic blood pressure 142 mm[Hg] Jenna Carmichael [place] [facility] 250 DO Work Phone: 11-05-2021 15:17-0400 72 1 Jenna Carmichael [place] [facility] 250 DO Work Phone: Comment on above: [facility] 06-17-2021 08:07-0500 Body height 175.26 cm Jenna Carmichael [place] [facility] 250 DO Work Phone: 06-17-2021 08:07-0500 Body mass index (BMI) [Ratio] 31.51 kg/m2 Jenna Carmichael [place] [facility] [place] 250 DO Work Phone: 06-17-2021 08:07-0500 Body surface area Derived from formula 2.12 m2 Jenna Carmichael [facility] 250 DO Work Phone: 06-17-2021 08:07-0500 Body weight 96.79 kg Jenna Carmichael [place] [facility] 250 DO Work Phone: 06-17-2021 08:07-0500 Diastolic blood pressure 87 mm[Hg] Jenna Brunnerp [facility] 250 DO Work Phone: 06-17-2021 08:07-0500 Heart rate 66 /min Jenna Estevez [facility] 250 DO Work Phone: 06-17-2021 08:07-0500 Systolic blood pressure 137 mm[Hg] Jenna Estevez [facility] 250 DO Work Phone: 06-06-2021 09:18-0500 145.6 1 Jenna Estevez [facility] 250 DO Work Phone: Comment on above: FSLDL Encounters Encounter Date Encounter Type Care Provider Facility Start: 11-30-2023 End: 11-30-2023 ambulatory [facility] Not Available Start: 03-11-2023 End: 03-11-2023 ambulatory [facility] Start: 03-11-2023 End: 03-11-2023 Office outpatient visit 15 minutes Jose Carlos Webster MD Work Phone: [facility] Comment on above: Atherosclerosis of c oronary artery, unspecified vessel or lesion type, unspecified whether angina present, unspecified whether ely [place] or transplanted heart; History of [place] (myocardial infarction); History of PTCA 2; Hyperlipidemia, unspecified hyperlipidemia type Start: 12-23-2022 Rx Renewal Jenna Estevez Work Phone: [facility] 250 DO Work Phone: Start: 01-29-2022 Office outpatient vi sit 15 minutes Jenna Estevez [facility] DO Work Phone: Start: 01-29-2022 Patient encounter procedure Jenna Estevez [facility] 250 DO Work Phone: Start: 01-29-[address] Jenna Estevez Facility: Start: 01-14-2022 AUDIT Jenna Estevez [facility] 250 DO Work Phone: Start: 11-26-2021 Rx Renewal Jenna Estevez [facility] 250 DO Work Phone: Start: 11-05-2021 End: 11-06-[address] FRANKI LEON Facility:[facility]1 Start: 06-17-2021 Office outpatient vi sit 25 minutes Jenna Estevez [facility] 250 DO Work Phone: Start: 06-17-[address] Jenna Estevez Facility: Start: 06-06-2021 End: 06-07-[address] FRANKI LEON Facility:[facility] Start: 05-29-[address] [facility] 600 DO Work Phone: Start: 12-24-2020 End: 12-24-[address] DOCTOR SHANNON Facility:[facility]1 Start: 04-12-2017 Ambulatory FRANKI LEON Facility :[id number] Start: 02-15-2017 Ambulatory JENNA ARNOLD Facility:[id number] Procedures Date Procedure Procedure Detail Performing Clinician Start: 03-11-2023 Comprehensive metabo lic 2000 panel - Serum or Plasma JOSE CARLOS WEBSTER Start: 03-11-2023 Lipid panel JOSE CARLOS INFANTE Start: 02-15-2023 History of percutane ous transluminal coronary angioplasty History of PTCA 2 Jose Carlos Webster MD Work Phone: Ankle Surgery Jenna Estevez Cath Stent Placement Number Of Stents Placed: Jenna Estevez History of percutane ous transluminal coronary angioplasty History of PTCA 2 Jose Carlos Webster MD Work Phone: Percutaneous transluminal coronary angioplasty Jenna Estevez [facility] procedure Jenna Estevez Comment on above: history of stent ind ications; NEGATED: Highlighted row has not occurred! Total colonoscopy Jenna Estevez Plan of Treatment Date Care Activity Detail Author Start: 01-17-2024 End: 01-17-2024 Patient encounter procedure 01/17/2024 10:15 AM EDT Office Visit [facility] [address] [facility] [address] [place] [address] Jose Carlos Webster MD [address] [facility] [address] [place] [address] [facility] Start: 12-10-2023 End: 03-11-2024 Comprehensive metabolic 2000 panel - Serum or Plasma Comprehensive Metabolic Panel Lab Routine Atherosclerosis of coronary artery, unspecified vessel or lesion type, unspecified whether angina present, unspecified whether ely shoshone or transplanted heart Hyperlipidemia, unspecified hyperlipidemia type Expected: 12/10/2023 (Approximate), Expires: 03/11/2024 [facility] Service Area Work Phone: Comment on above: Expected: 12/10/2023 (Approximate), Expires: 03/11/2024 Start: 12-10-2023 End: 03-11-2024 Lipid 1996 panel - Serum or Plasma Lipid Panel Lab Routine Atherosclerosis of coronary artery, unspecified vessel or lesion type, unspecified whether angina present, unspecified whether ely shoshone or transplanted heart Hyperlipidemia, unspecified hyperlipidemia type Expected: 12/10/2023 (Approximate), Expires: 03/11/2024 [facility] Work Phone: Comment on above: Expected: 12/10/2023 (Approximate), Expires: 03/11/2024 Start: 01-25-2023 FUV, Provider: Jose Carlos Webster, Status: Pen, Time: 9:45 AM FUV, Provider: Jose Carlos Webster, Status: Pen, Time: 9:45 AM [facility] 250 DO Work Phone: Start: 01-08-2023 Influenza vaccination Influenza Vacc ine (#1) [facility] Start: 01-29-2022 FUV, Provider: Jose Carlos Webster, Status: Pen, Time: 10:45 AM FUV, Provider: Jose Carlos Webster, Status: Pen, Time: 10:45 AM [facility] 250 DO Work Phone: Start: 08-15-2022 Screening for malign ant neoplasm of colon [facility] Start: 12-09-2021 FUV, Provider: Franki Leon, Status: Pen, Time: 8:45 AM FUV, Provider: Franki Leon, Status: Pen, Time: 8:45 AM [facility] 250 DO Work Phone: Start: 06-17-2021 FUV, Provider: Franki Leon, Status: Pen, Time: 8:15 AM FUV, Provider: Franki Leon, Status: Pen, Time: 8:15 AM [facility] Work Phone: Start: 2006 Zoster Vaccines (1 o f 2) Zoster Vaccines (1 of 2) [facility] Start: 1978 DTaP/Tdap/Td Vaccine s (1 - Tdap) DTaP/Tdap/Td Vaccines (1 - Tdap) [facility] Start: 1974 Diabetes mellitus screening Diabetes Screening [facility] Start: 1974 [facility]atitis C [facility] Pneumococcal Vaccine : 65+ Years (1 - PCV) Pneumococcal Vaccine: 65+ Years (1 - PCV) [facility] Start: 1956 COVID-19 Vaccine (#1) COVID-19 Vacci ne (#1) [facility] Start: 1956 Lipid panel Lipid Panel [facility] Start: 1956 Medicare Annual Wellness Visit Medicare Annual Wellness Visit (AWV) [facility] Start: 1956 Screening for malign ant neoplasm of colon [facility] Payers Date Payer Category Payer Unknown 2022 Unknown [id number] 2022 Medicaid [id number] 2022 Medicaid MEDICAID MEDICAI D [id number] 2022-Present [address] [place] [address] [id number] 1959 Unknown [id number] 1959 Unknown [id number] 1956 Unknown [id number] 1956 Unknown [id number] 1956 Unknown [id number] 1956 Unknown [id number] 1956 Unknown [id number] 1956 Unknown [id number] 1956 Unknown [id number] Medicare [id number] Social History Date Type Detail Facility Start: 03-11-2023 No illicit drug use No illicit drug use [facility] 600 DO Work Phone: Comment on above: 8 cups of coffee per day.; Start: 03-11-2023 Tobacco smoking stat [facility] Never smoked tobacco [facility] Work Phone: Start: 03-11-2023 Tobacco use and exposure Smokeless tobacco non-user [facility] Work Phone: Start: 03-11-2023 Alcohol intake Current drinke r of alcohol (finding) [facility] Work Phone: Start: 03-11-2023 Tobacco use panel [facility] Work Phone: Start: 1955 Sex Assigned At Not on file [facility] Work Phone: Start: 03-01-2023 End: 03-11-2023 Exposure to SARS-CoV-2 (event) Not sure [facility] History of Present illness Narrative 03-11-2023 Jose Carlos Webster MD - 03/11/2023 2:15 PM EDT Note Date & Type Note Facility 03-11-2023 History of Present illness Narrative 1 year FU. 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 At times he feels that the workload may be a little too high. recently having memory issues, so there is some situational stress He has lost some weight, he attributes this to stress History so Far : 1. Hypertension-at target, continue carvedilol at current doses 2. Atherosclerotic ely shoshone vessel coronary artery disease, status post PCI and stent to the left anterior descending artery and right coronary artery June 2015, 80% ostial circumflex disease is being managed medically, patient remains class I. Cardiac catheterization June 2015-proximal and mid LAD 95% and 90% stenosis proximal and ostial circumflex 80% stenosis mid RCA 95% stenosis successful PCI of mid RCA with resolute drug-eluting stent postdilated with 4.5 mm balloon to high pressures successful PCI of proximal and mid LAD with deployment of 30 mm resolute drug-eluting stent postdilated with 3.5 mm noncompliant balloon at high pressure without complication. 1 3. Hyperlipidemia-on high intensity statin 4.Averages 8 cups of coffee per day 5. Never a smoker 6. EKG June 2015 sinus rhythm Q waves in lead III normal intervals 1 7. Stress Myoview September 2015-normal, Leija treadmill score 7 LVEF 67% normal perfusion transient ischemic dilatation normal at 1.01, 9.8 METS, 88% age-predicted maximum heart rate 8. Echocardiogram 2016 LVEF 60 to 65% impaired relaxation pattern of LV diastolic filling left atrial volume index 26.7 mL/m LV wall thickness and cavity size normal RV systolic function normal valves grossly normal RVSP 22 mmHg Objective Wt Readings from Last 3 Encounters: 03/11/23 93.4 kg (206 lb) 01/29/22 95.7 kg (211 lb) 06/17/21 96.8 kg (213 lb 6 oz) Physical Exam: GENERAL APPEARANCE: in no acute distress. CHEST: Symmetric and non-tender. INTEGUMENT: Skin warm and dry HEENT: No gross abnormalities identified.No pallor or scleral icterus. NECK: Supple, no JVD, no bruit. NEURO/PSHCY: Alert and oriented x3; appropriate behavior and responses and responses LUNGS: Clear to auscultation bilaterally; normal respiratory effort. HEART: Rate and rhythm regular with no evident murmur; no gallop appreciated. ABDOMEN: Soft, non tender. MUSCULOSKELETAL: No gross deformities. EXTREMITIES: Warm There is no edema noted. Meds: Current Outpatient Medications Medication Instructions aspirin 81 mg, oral, Daily atorvastatin (LIPITOR) 80 mg, oral, Nightly carvedilol (COREG) 6.25 mg, oral, 2 times daily nitroglycerin (Nitrostat) 0.4 mg SL tablet DISSOLVE 1 (ONE) TABLET UNDER THE TONGUE NEEDED FOR CHEST PAIN. MA Allergies Allergen Reactions Tuna Oil Swelling LABS: In January 2023 sodium was 140 potassium 4.2 GFR greater than 60 creatinine 0.85 and liver enzymes were normal. I do not see a lipid profile. Problem List: Patient Active Problem List Diagnosis Date Noted Atherosclerosis of coronary artery 02/15/2023 History of [place] (myocardial infarction) 02/15/2023 History of PTCA 2 02/15/2023 Hyperlipidemia 02/15/2023 Patient has a off clopidogrel, for 6 months. At this point we can discontinue the clopidogrel and continue aspirin. Follow-up in 1 year with comprehensive profile and lipid profile prior to next visit. Come in sooner if any interval issues arise. Continue heart healthy lifestyle Follow up : 1 year Jose Carlos Webster MD documented in this encounter [facility] Work Phone: Instructions 03-11-2023 Patient Instructions Note Date & Type Note Facility 03-11-2023 Instructions Reji Saleem MA - 03/11/2023 2:15 PM EDT Please bring all medicines, vitamins, and herbal supplements with you when you come to the office. Prescriptions will not be filled unless you are compliant with your follow up appointments or have a follow up appointment scheduled as per instruction of your physician. Refills should be requested at the time of your visit. documented in this encounter [facility] Work Phone: History of Present illness Narrative 06-10-2021 Note Date & Type Note Facility 06-10-2021 History of Present illness Narrative Patient is new to this provider, he has atherosclerotic ely shoshone vessel coronary artery disease and risk factors, previously seen in June 2021.Interval review of systems is negative for chest discomfort pressure tightness heaviness palpitations lightheadedness orthopnea paroxysmal nocturnal dyspnea dependent edema or claudication TIA or CVA type symptoms or bleeding diathesisBlood pressure initially elevated, recheck blood pressure at targetReports compliance to medicationsBMI is excessive, but patient is following a heart healthy lifestyle.Laboratory data reviewed in October 2021 HDL was 45 and LDL 72Assessment:1. Hypertension-at target, continue carvedilol at current doses2. Atherosclerotic ely shoshone vessel coronary artery disease, status post PCI and stent to the left anterior descending artery and right coronary artery June 2015, 80% ostial circumflex disease is being managed medically, patient remains class I.3. Hyperlipidemia-on high intensity statin4.Averages 8 cups of coffee per day5. Never a smoker6. Cardiac catheterization 2015-normal left main 95% LAD 80% ostial circumflex 95% RCA7. Stress Myoview September 2015-normal, Leija treadmill score 7 LVEF 67% normal perfusion transient ischemic dilatation normal at 1.01, 9.8 METS, 88% age-predicted maximum heart rateRecommendations:1. Continue current medical regimen2. Follow-up in 1 year sooner if interval problems arise3. Comprehensive profile and lipid profile prior to next visit4. Heart healthy lifestyle was encouraged -[facility] 250 DO Work Phone: History of Present illness Narrative 06-10-2015 Note Date & Type Note Facility 06-10-2015 History of Present illness Narrative Mr. Glynn is a 66-year-old male who is seen today for follow-up on his history of coronary disease. He presented in June 2015 with chest pain while he was on a cruise ship in [place]. He was initially life flighted to [facility] and then eventually life flighted to [facility]. While there he underwent cardiac catheterization and had intervention to the LAD into the right coronary arteries which both had significant stenosis. The circumflex was considered to have an ostial stenosis of 80% and he did not have intervention to the circumflex. Clinically he has done well. He has had a stress test done for follow-up after his intervention and there was no evidence for ischemia. Clinically he remained stable and has had no recurrence of any chest pain. He remains active. Indicates for what ever reason he did not get refills on atorvastatin apparently in error. He is not been on this apparently for the last 6 months. No complaints today.Physical exam:Neck: No carotid bruits are heardLungs: ClearHeart: Regular rate and rhythm without murmurs or extra soundsExtremities: No edemaRecommendation is continuation of current medications. He will get refills on his atorvastatin. He is encouraged to remain physically active and to continue to work on some weight loss. He is to return in 6 months for follow-up. [facility] 250 DO Work Phone: Evaluation note Note Date & Type Note Facility Evaluation note Diagnosis Atherosclerosis of coronary artery, unspecified vessel or lesion type, unspecified whether angina present, unspecified whether ely shoshone or transplanted heart History of NJ (myocardial infarction) Old myocardial infarction History of PTCA 2 Hyperlipidemia, unspecified hyperlipidemia type documented in this encounter [facility] Work Phone: Reason for referral (narrative) Consultation (Routine) - Authorized Note Date & Type Note Facility Reason for referral (narrati ve) Specialty Diagnoses / Procedures Referred By Contac t Referred To Contact Cardiology Diagnoses Atherosclerosis of coronary artery, unspecified vessel or lesion type, unspecified whether angina present, unspecified whether ely shoshone or transplanted heart Procedures Follow Up In Cardiology Jose Carlos Webster MD [address] [facility] [address] [place] [address] Jose Carlos Webster MD [address] [facility] [address] [place] [address] Referral ID Status Reason Start Date Expiration Date V isits Requested Visits Authorized [id number] Authorized 03/11/2023 03/10/2024 1 1 [facility] Work Phone: Summary Purpose Family History No Family History Records FoundUnknown Family Member Name Dates Details No pertinent family history: Mother, Father(V49.89, Z78.9) Status:Active Family history of kidney sto marti: Daughter(V18.69, Z84.1) Status:Active Family history of malignant neoplasm of prostate: Brother(V16.42, Z80.42) Status:Active Unknown Family Member Name Dates Details Family history of kidney sto marti: Daughter(V18.69, Z84.1) Status:Active Family history of malignant neoplasm of prostate: Brother(V16.42, Z80.42) Status:Active No pertinent family history: Mother, Father(V49.89, Z78.9) Status:Active Unknown Family Member Name Dates Details Family history of kidney sto marti: Daughter(V18.69, Z84.1) Status:Active Family history of malignant neoplasm of prostate: Brother(V16.42, Z80.42) Status:Active No pertinent family history: Mother, Father(V49.89, Z78.9) Status:Active Unknown Family Member Name Dates Details Family history of kidney sto marti: Daughter(V18.69, Z84.1) Status:Active Family history of malignant neoplasm of prostate: Brother(V16.42, Z80.42) Status:Active No pertinent family history: Mother, Father(V49.89, Z78.9) Status:Active Unknown Family Member Name Dates Details Family history of kidney sto marti: Daughter(V18.69, Z84.1) Status:Active Family history of malignant neoplasm of prostate: Brother(V16.42, Z80.42) Status:Active No pertinent family history: Mother, Father(V49.89, Z78.9) Status:Active Unknown Family Member Name Dates Details Family history of kidney sto marti: Daughter(V18.69, Z84.1) Status:Active Family history of malignant neoplasm of prostate: Brother(V16.42, Z80.42) Status:Active No pertinent family history: Mother, Father(V49.89, Z78.9) Status:Active Unknown Family Member Name Dates Details Family history of kidney sto marti: Daughter(V18.69, Z84.1) Status:Active Family history of malignant neoplasm of prostate: Brother(V16.42, Z80.42) Status:Active No pertinent family history: Mother, Father(V49.89, Z78.9) Status:Active Advance Directives No Advanced Directives Records FoundNo Advanced Directives Records FoundNo Advanced Directives Records FoundNo Advanced Directives Records FoundNo Advanced Directives Records FoundNo Advanced Directives Records Found Chief Complaint JT GLYNN is being seen for a 6 month follow-up of.JT GLYNN is being seen for a 6 month follow-up of.JT GLYNN is being seen for a 6 month follow-up of. Additional Source Comments (unrecognized sect ion and content) No Status Records FoundNo Status Records FoundNo Status Records FoundNo Status Records FoundNo Status Records FoundNo Status Records Found INFORMATION SOURCE (unrecogn ized section and content) DATE CREATED AUTHOR 11/02/2017 [facility] DATE CREATED AUTHOR AUTHOR'S ORGANIZ ATION 11/08/2021 [facility] DATE CREATED AUTHOR AUTHOR'S ORGANIZ ATION 02/18/2022 [facility] DATE CREATED AUTHOR AUTHOR'S ORGANIZ ATION 03/03/2022 [employer] DATE CREATED AUTHOR AUTHOR'S ORGANIZ ATION 03/13/2023 [facility] DATE CREATED AUTHOR AUTHOR'S ORGANIZ ATION 12/02/2023 [facility] EPIC Reason for Visit (unrecogniz ed section and content) Reason Comments Annual Exam 1yr Care Teams (unrecognized sec tion and content) Development Coach Relationship Specialty Start Date End Date Zaheer Epps MD [address] [place] [id number] PCP - General Family Medicine 03/11/23 FOR RECORDS PERTAINING TO PATIENTS WHO ARE OR HAVE BEEN ENROLLED IN A CHEMICAL DEPENDENCY/SUBSTANCEABUSE PROGRAM, SOME INFORMATION MAY BE OMITTED. This clinical summary was aggregated from multiple sources. Caution should be exercised in using it in the provision of clinical care. This summary normalizes information from multiple sources, and as a consequence, information in this document may materially change the coding, format and clinical context of patient data. In addition, data may be omitted in some cases. CLINICAL DECISIONS SHOULD BE BASED ON THE PRIMARY CLINICAL RECORDS. [email or web address] [facility]. provides no warranty or guarantee of the accuracy or completeness of information in this document.
[2024-01-14 08:08] LABS: Alanine Aminotransferase 35 U/L (16-63); Albumin Globulin Ratio 1.1; Albumin Level 3.5 g/dL (3.4-5.0); Alkaline Phosphatase 88 U/L (46-116); Anion Gap 10.8; Aspartate Amino Transferase 25 U/L (15-37); BUN Creatinine Ratio 8.8; Bilirubin Total 0.9 mg/dL (0.2-1.0); Calcium 9.4 mg/dL (8.5-10.1); Chloride 108 mmol/L (98-107); Chol HDL Ratio 2.5; Cholesterol 130 mg/dL (<=200); Estimated GFR (African America >60 (>=60); Estimated GFR (Non-African Ame >60 (>=60); Globulin 3.1 g/dL; Glucose 96 mg/dL (74-106); HDL Cholesterol 51 mg/dL (40-60); LDL Cholesterol Calculated 67.4 mg/dL; Potassium 4.8 mmol/L (3.5-5.1); Sodium 143 mmol/L (136-145); Total Protein 6.6 g/dL (6.4-8.2); Triglycerides 58 mg/dL (<=150); VLDL CHOLESTEROL 11.6 mg/dL
== END 2024-01-14 06:51 | disposition home or self-care (01) ==
LOC: LAB 06:51
PROVIDERS: PCP Family Medicine; Visit Provider Family Medicine
DX: Z13.1 Encounter for screening for diabetes mellitus (principal); Z13.220 Encounter for screening for lipoid disorders
CPT/HCPCS: 36415; 80053; 80061

== ENCOUNTER 2025-01-30 07:03 | Outpatient (OUT) | payer OTHER, SELFPAY ==
--- OUTSIDE RECORDS SUMMARY | 2025-01-30 07:09 | XMS_ITS | CCD ---
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 York Referring Unavailable Carmichael Kolp, Jenna A Unavailable Zaheer Epps MD Primary Care Provider Zaheer Epps MD Primary Care Provider [phone] Zaheer Epps MD Unavailable Zaheer Epps MD Primary Care Provider [phone] Zaheer Epps MD Unavailable Zaheer Epps MD Primary Care Provider Jose Carlos Webster MD Unavailable ZAHEER EPPS Attending Unavailable ZAHEER EPPS Attending Unavailable JOSE CARLOS WEBSTER Attending Unavailable JOSE CARLOS WEBSTER Referring Unavailable ZAHEER EPPS Primary Care Unavailable Allergies Allergy Classification Reported Allergen(s) Allergy Type Date of Onset Reaction(s) Facility (7 sources) tuna, unspecified Allergy to substance (finding) [facility] 600 DO Work Phone: (3 sources) Tuna Oil; Translations: [TUNA OIL] Propensity to adverse reactions 3 Swelling [facility] (4 sources) Fish Oils Drug Allergy 3 Swelling [facility] Medications Current Medications Medication Drug Class(es) Dates Sig (Normalized) Sig (Original) acetaminophen 325 mg / oxyCODONE hydrochloride 5 mg oral tablet (4 sources) Opioid Agonist Start: 12-28-2023 End: 10-31-2024 take 1 tablet by mouth every six hours oxyCODONE-acetamin ophen (Percocet) 5-325 MG tablet Take 1 tablet by mouth every 6 (six) hours 12/28/2023 10/31/2024 Discontinued (Therapy completed) aspirin 81 mg delayed release oral tablet (12 sources) Platelet Aggregation Inhibitor, Nonsteroidal Anti-inflammatory Drug Start: 02-16-2023 End: 10-31-2024 take 1 tablet by mouth in the morning aspirin 81 MG EC tablet Take 81 mg by mouth in the morning. 02/16/2023 10/31/2024 Discontinued (Med list cleanup) Start: 06-17-2021 take 1 tablet by neeru once daily Aspirin 81 MG Oral Tablet Delayed Release TAKE 1 TABLET BY MOUTH DAILY Quantity: 90 Refills: 3 Ordered: 29-Jan-2022 Jose Carlos Webster MD Start : 17-Jun-2021 Active atorvastatin 80 mg oral tablet (15 sources) HMG-CoA Reductase Inhibitor Start: 07-02-2015 End: 01-16-2025 take 1 tablet by mouth once daily at bedtime atorvastatin (Lipitor) 80 mg tablet Indications: Hyperlipidemia, unspecified hyperlipidemia type , History of PTCA 2 Take 1 tablet (80 mg) by mouth once daily at bedtime. 90 tablet 3 01/17/2024 01/16/2025 Active carvedilol 6.25 mg oral tablet (15 sources) alpha-Adrenergic Kyra, beta-Adrenergic Kyra Start: 07-02-2015 End: 01-16-2025 take 1 tablet by mouth in the morning carvedilol (Coreg) 6.25 MG tablet Take 6.25 mg by mouth in the morning and 6.25 mg in the evening. Take with meals. 03/11/2023 10/31/2024 Discontinued (Med list cleanup) nitroglycerin 0.4 mg sublingual tablet (9 sources) Nitrate Vasodilator Start: 07-02-2015 nitroglycerin (Nitrostat) 0.4 mg SL tablet DISSOLVE 1 (ONE) TABLET UNDER THE TONGUE NEEDED FOR CHEST PAIN. MA 07/02/2015 Active Start: 07-02-2015 Nitroglycerin 0.4 MG Sublingual Tablet Sublingual DISSOLVE 1 (ONE) TABLET UNDER THE TONGUE NEEDED FOR CHEST PAIN. MA Quantity: 25 Refills: 11 Ordered: 29-Jan-2022 Jose Carlos Webster MD Start : 02-Jul-2015 Active triamcinolone acetonide 0.001 mg/mg topical ointment (6 sources) Corticosteroid Start: 10-31-2024 triamcinolone (Kenalog) 0.1 % ointment Indications: Venous stasis Apply topically in the morning and before bedtime. 45 g 1 10/31/2024 Active Start: 10-31-2024 triamcinolone (Kenalog) 0.1 % ointment Indications: Venous stasis Apply topically in the morning and before bedtime. 45 g 1 10/31/2024 Active Start: 11-30-2023 End: 10-31-2024 triamcinolone (Kenalog) 0.1 % ointment Indications: Venous stasis Apply topically 2 (two) times a day 45 g 1 11/30/2023 10/31/2024 Discontinued (Reorder) Completed/Discontinued Medications Medication Drug Class(es) Dates Sig [...] initial episode of care] Onset: 01-06-2021 Chronic Administrative/social admission (2 sources) Advance directive discussed with patient; Translations: [Other specified counseling] 10-26-2024 Episodic Coronary atherosclerosis and other heart disease (20 sources) Atherosclerotic heart disease of little traverse coronary artery without angina pectoris; Translations: [Coronary atherosclerosis] Onset: 04-12-2017 Chronic Coronary atherosclerosis and other heart disease (9 sources) Post percutaneous transluminal coronary angioplasty; Translations: [Percutaneous transluminal coronary angioplasty status] Onset: 02-15-2023 Episodic Coronary atherosclerosis and other heart disease (1 source) Coronary atherosclerosis and other heart disease Onset: 04-12-2017 Disorders of lipid metabolism (20 sources) Hyperlipidemia; Translations: [Other and unspecified hyperlipidemia] Onset: 06-06-2021 Chronic Essential hypertension (4 sources) Essential hypertension; Translations: [Essential (primary) hypertension] Onset: 01-17-2024 01-17-2024 Chronic Other diseases of veins and lymphatics (6 sources) Venous stasis; Translations: [Other specified disorders of veins] Onset: 11-30-2023 11-30-2023 Episodic Other non-traumatic joint disorders (4 sources) Derangement of right shoulder joint; Translations: [Other specific joint derangements of right shoulder, not elsewhere classified] Onset: 11-17-2023 11-17-2023 Chronic Other nutritional; endocrine; and metabolic disorders (7 sources) Obesity; Translations: [Obesity, unspecified] Chronic Other nutritional; endocrine; and metabolic disorders (3 sources) Body mass index 30+ - obesity; Translations: [Body Mass Index 30.0-30.9, adult] Onset: 01-17-2024 01-17-2024 Chronic Other nutritional; endocrine; and metabolic disorders (1 source) Overweight; Translations: [Overweight] Episodic Other nutritional; endocrine; and metabolic disorders (2 sources) Body mass index (BMI) 28.0-28.9, adult; Translations: [Body mass index (BMI) 28.0-28.9, adult] Onset: 01-29-2025 Episodic Other screening for suspected conditions (not mental disorders or infectious disease) (15 sources) Patient encounter status; Translations: [Special screening for malignant neoplasms of colon] 10-26-2024 Episodic Residual codes; unclassified (2 sources) Noncompliance with medication regimen; Translations: [Noncompliance with medication regimen] 10-31-2024 Episodic Residual codes; unclassified (2 sources) Other specified health status; Translations: [Other specified health status] Onset: 01-17-2024 Episodic Unclassified (2 sources) Athscl heart disease of little traverse coronary artery w/o ang pctrs / I25.10(ICD-9) Onset: 04-12-2017 Unclassified (2 sources) Pain in right shoulder / M25.511(ICD-9) Onset: 02-15-2017 Viral infection (1 source) COVID-19; Translations: [COVID-19] Onset: 01-06-2021 Past or Other Problems Problem Classification Problem Date Documented Da te Episodic/Chronic Mood disorders (4 sources) Mood disorders Onset: 11-30-2023 Resolved: 10-31-2024 11-30-2023 Other aftercare (1 source) Other predatory animal 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 (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 therapy; Translations: [OTH RESIDENTIAL CURRENT DRUG THERAPY] Onset: 01-06-2021 Episodic Other lower respiratory disease (3 sources) Cough; Translations: [COUGH] Onset: 12-24-2020 Episodic Other non-traumatic joint disorders (6 sources) Shoulder pain; Translations: [Pain in joint, shoulder region] Resolved: 02-08-2022 Episodic Other non-traumatic joint disorders (1 source) Pain in right shoulder; Translations: [Right shoulder pain] Resolved: 06-17-2021 Episodic Other nutritional; endocrine; and metabolic disorders (4 sources) Body mass index 25-29 - overweight; Translations: [Overweight] Onset: 11-30-2023 11-30-2023 Episodic Other upper respiratory infections (1 source) Acute upper respiratory infection, unspecified; Translations: [ACUTE UP RESPIRATORY INFECTION UNS] Onset: 01-06-2021 Episodic Residual codes; unclassified (7 sources) History of chest pain; Translations: [Personal history of other specified diseases] Resolved: 10-15-2016 Episodic Residual codes; unclassified (2 sources) Never smoked tobacco; Translations: [Other specified health status] Onset: 01-17-2024 01-17-2024 Episodic Unclassified (1 source) Pain in right shoulder; Translations: [Pain in right shoulder] Onset: 02-15-2017 Unclassified (6 sources) Never smoked tobacco; Translations: [Never a smoker] Unclassified (2 sources) Onset: 03-11-2023 03-11-2023 Results Test Name Value Interpretation Reference Range Facility ALL LIPID PROFILE (FASTING)o n 01-14-2024 CHOL HDL RATIO 2.5 [facility] Comment on above: 3.3 - 4.4 LOW RISK 4.4 - 7.1 AVERAGE RISK 7.1 - 11.0 MODERATE RISK >11.0 HIGH RISK Cholesterol [Mass/Vol] 130 mg/dL NINF - 200 mg/dL [facility] Cholesterol in HDL [Mass/Vol] 51 mg/dL 40 - 60 mg/dL [facility] Comment on above: > or =60 mg/dl - LOW CARDIOVASCULAR RISK <40 mg/dl - HIGH CARDIOVASCULAR RISK Magnesium [Mass/Vol] 67.4 mg/dL [facility] Comment on above: <100 mg/dl OPTIMAL 100-129 mg/dl NEAR OR ABOVE OPTIMAL 130-159 mg/dl BORDERLINE HIGH 160-189 mg/dl HIGH >190 mg/dl VERY HIGH Magnesium [Mass/Vol] 11.6 mg/dL [facility] Triglyceride [Mass/Vol] 58 mg/dL NINF - 150 mg/dL [facility]CF CMP (CMP) (FOR REMOTE FH C USE)on 01-14-2024 Albumin [Mass/Vol] 3.5 g/dL 3.4 - 5.0 g/dL [facility] ALBUMIN GLOBULIN RATIO 1.1 [facility] ALP [Catalytic activity/Vol] 88 U/L 46 - 116 U/L [facility] ALT [Catalytic activity/Vol] 35 U/L 16 - 63 U/L [facility] Anion gap [Moles/Vol] 10.8 mmol/L [facility] AST [Catalytic activity/Vol] 25 U/L 15 - 37 U/L [facility] Bilirubin [Mass/Vol] 0.9 mg/dL 0.2 - 1 .0 mg/dL [facility] Calcium [Mass/Vol] 9.4 mg/dL 8.5 - 10. 1 mg/dL [facility] Chloride [Moles/Vol] 108 mmol/L High 98 - 10 7 mmol/L [facility] CO2 [Moles/Vol] 29.0 mmol/L 21.0 - 32.0 mmol/L [facility] Creatinine [Mass/Vol] 0.91 mg/dL 0.70 - 1.30 mg/dL [facility] GFR/1.73 sq M.predicted CKD-EPI (S/P/Bld) [Vol rate/Area] >60 60 - PINF [facility] Globulin (S) [Mass/Vol] 3.1 g/dL [facility] Glucose [Mass/Vol] 96 mg/dL 74 - 106 mg/dL [facility] Interpretation and review of laboratory results Abnormal [facility] Potassium [Moles/Vol] 4.8 mmol/L 3.5 - 5.1 mmol/L [facility] Protein [Mass/Vol] 6.6 g/dL 6.4 - 8.2 g/dL [facility] Sodium [Moles/Vol] 143 mmol/L 136 - 145 mmol/L [facility] TBH EGFR-NON AF MALIAN >60 60 - PINF [facility] Urea nitrogen [Mass/Vol] 8.0 mg/dL 7.0 - 18.0 mg/dL [facility] Urea nitrogen/Creatinine [Mass ratio] 8.8 mg/mg [facility] No Panel Informationon 01-13 [facility] Office Visit (Cardiology)on 01-29-2022 Follow-up visit Diagnoses/Problems Assessed Atherosclerosis of coronary artery (414.00) (I25.10) History of CA (myocardial infarction) (412) (I25.2) History of PTCA [...] Lipid Panel; Status:Active - Retrospective Authorization; Requested for:29Jan2023; Class 1 obesity with body mass index [...] follow up in 1 year Chief Complaint ALEX GLYNN is being seen for a 6 month follow-up of. History of Present Illness Patient is new to this provider, he has atherosclerotic little traverse vessel coronary artery disease and risk factors, [...] continue carvedilol at current doses 2. Atherosclerotic little traverse vessel coronary artery disease, status post PCI [...] Allergies Recorded (more content not included)... Normal [facility] Tobacco Screening.on 022 Adult depression screening assessment No [facility] 250 DO Work Phone: Fall risk assessment a) No falls within the last year [facility] 250 DO Work Phone: Tobacco use status [facility] b) No [facility] 250 DO Work Phone: LIPID PROFILEon 11-05-2021 CHOL-HDL RATIO NORM SEE BELOW Normal [facility] Comment on above: Result Comment: 3.3 - 4.4 LOW RISK 4.4 - 7.1 AVERAGE RISK 7.1 - 11.0 MODERATE RISK >11.0 HIGH RISK Performed By: #### A ST, ALT, LIPID #### [facility] [address] [address] [address] Patricia Cifuentes Cholesterol [Mass/Vol] 113 mg/dL Normal <=[address] [facility] Comment on above: Performed By: #### A ST, ALT, LIPID #### [facility] [address] [address] [address] Patricia Cifuentes Cholesterol in HDL [Mass/Vol] 45 mg/dL Normal 40-[address] [facility] Comment on above: Performed By: #### A ST, ALT, LIPID #### [facility] [address] [address] [address] Patricia Cifuentes Cholesterol in LDL [Mass/Vol] 60.8 mg/dL Normal [facility] Comment on above: Performed By: #### A ST, ALT, LIPID #### [facility] [address] [address] [address] Patricia Cifuentes Cholesterol.total/Ch olesterol in HDL [Mass ratio] 2.5 {ratio} Normal [facility] Comment on above: Performed By: #### A ST, ALT, LIPID #### [facility] [address] [address] [address] Patricia Cifuentes HDL NORMAL > or = 60 mg/dl - LO W CARDIOVASCULAR RISK <40 mg/dl - HIGH CARDIOVASCULAR RISK Normal [facility] Comment on above: Performed By: #### A ST, ALT, LIPID #### [facility] [id number] Patricia Cifuentes LDL CALC NORMAL SEE BELOW Normal [facility] Comment on above: Result Comment: <100 mg/dl OPTIMAL 100 - 129 mg/dl NEAR OR ABOVE OPTIMAL 130 - 159 mg/dl BORDERLINE HIGH 160 - 189 mg/dl HIGH >190 mg/dl VERY HIGH Performed By: #### A ST, ALT, LIPID #### [facility] [address] [place], [place] [address] Dr. Patricia Cifuentes Triglyceride [Mass/Vol] 36 mg/dL Normal <=[address] [facility] Comment on above: Performed By: #### A ST, ALT, LIPID #### [facility] [address] [address] [address] Patricia Cifuentes VLDL CALC 7.2 mg/dL Normal [facility] Comment on above: Performed By: #### A ST, ALT, LIPID #### [facility] [address] [address] [address] Patricia Perea 11-05-2021 AST [Catalytic activity/Vol] 15 U/L Normal 15-[address] [facility] Comment on above: Performed By: #### A ST, ALT, LIPID #### [facility] [address] [place] [id number] [address] Patricia JUNIORPTon 11-05-2021 ALT [Catalytic activity/Vol] 36 U/L Normal 16-[address] [facility] Comment on above: Performed By: #### A ST, ALT, LIPID #### [facility] [address] [place], [place] [address] Dr. Patricia Cifuentes Office Visit (Cardiology)on 06-17-2021 [...] Aminotransferase, Serum; Status:Active - Retrospective Authorization; Requested for:[id number]; AST; Status:Active - Retrospective Authorization; Requested for:[id number]; Lipid Panel; Status:Active - Retrospective Authorization; Requested for:[id number]; Hyperlipidemia Renew: Atorvastatin Calcium 80 MG Oral Tablet; TAKE 1 TABLET AT BEDTIME SocHx: Never a smoker Tobacco Use Screening; Status:Complete; Done: [id number] Patient Instructions By signing my name below, Missy Gallagher RN,Scribe Please bring all medicines, vitamins, and herbal supplements with you when you come to the office. Prescriptions will not be filled unless you are compliant with your follow up appointments or have a follow up appointment scheduled as per instruction of your physician. Refills should be requested at the time of your visit. Chief Complaint ALEX GLYNN is being seen for a 6 month follow-up of. History of Present Illness Mr. Glynn is a 66-year-old male who is seen today for follow-up on his history of coronary disease. He presented in June 2015 with chest pain while he was on a cruise ship in [place]. He was initially life flighted to [place] and then eventually life flighted to [facility]. While there he underwent cardiac catheterization and [...] negative for complaint. Vitals Vital Signs Recorded: 17Jun2021 08:07AM Heart Rate66, R Brachial Artery [id number], RUE, Sitting [id number], RUE, Sitting Height5 ft 9 in [id number] lb 6 oz BMI Qbodqgbyje67.51 kg/m2 BSA Calculated2.12 Tobacco Useb) No Fall Screeninga) No falls within the last year Signatures Electronically signed by : Franki Leon DO; Jun 17 2021 8:27AM EST (Author) Normal [facility] Tobacco Screening.on 022 Fall risk assessment a) No falls within the last year [facility] 250 DO Work Phone: Tobacco use status [facility] b) No [facility] 250 DO Work Phone: BUNon 06-06-2021 Urea nitrogen [Mass/Vol] 10.0 mg/dL Normal 9.0-20.[address] [facility] Comment on above: Performed By: #### C ANGELES, ELEC, AST, LIPID, BUN, ALT #### [facility] [address] [place] [address] Dr. Patricia Cifuentes CREATININEon 06-06-2021 Creatinine [Mass/Vol] 1.03 mg/dL Normal 0.66-1.[address] [facility] Comment on above: Performed By: #### C ANGELES, ELEC, AST, LIPID, BUN, ALT #### [facility] [address] [place] [address] Dr. Patricia Cifuentes EGFR-AF MALIAN >60 Normal >=60 [facility] Comment on above: Performed By: #### C ANGELES, ELEC, AST, LIPID, BUN, ALT #### [facility] [address] [place] [address] Dr. Patricia Cifuentes EGFR-NON AF MALIAN >60 Normal >=[address] [facility] Comment on above: Performed By: #### C ANGELES, ELEC, AST, LIPID, BUN, ALT #### [facility] [address] [address] [address] Patricia Cifuentes ELECTROLYTESon 06-06-2021 Anion gap [Moles/Vol] 10.8 mmol/L Normal [facility] Comment on above: Performed By: #### C ANGELES, ELEC, AST, LIPID, BUN, ALT #### [facility] [address] [place] [address] Dr. Patricia Cifuentes Chloride [Moles/Vol] 106 mmol/L Normal 98-[address] [facility] Comment on above: Performed By: #### C ANGELES, ELEC, AST, LIPID, BUN, ALT #### [facility] [address] [place] [address] Dr. Patricia Cifuentes CO2 [Moles/Vol] 27.7 mmol/L Normal 22.0-30.0 [facility] Comment on above: Performed By: #### C ANGELES, ELEC, AST, LIPID, BUN, ALT #### [facility] [address] [address] [address] Patricia Cifuentes Potassium [Moles/Vol] 4.5 mmol/L Normal 3.4-5.[address] [facility] Comment on above: Performed By: #### C ANGELES, ELEC, AST, LIPID, BUN, ALT #### [facility] [address] [address] [address] Patricia Cifuentes Sodium [Moles/Vol] 140 mmol/L Normal 137-145 [facility] Comment on above: Performed By: #### C ANGELES, ELEC, AST, LIPID, BUN, ALT #### [facility] [address] [place] [address] Dr. Patricia Cifuentes LIPID PROFILEon 06-06-2021 CHOL-HDL RATIO NORM SEE BELOW Normal [facility] Comment on above: Result Comment: 3.3 - 4.4 LOW RISK 4.4 - 7.1 AVERAGE RISK 7.1 - 11.0 MODERATE RISK >11.0 HIGH RISK Performed By: #### C ANGELES, ELEC, AST, LIPID, BUN, ALT #### [facility] [address] [place] [address] Dr. Patricia Cifuentes Cholesterol [Mass/Vol] 214 mg/dL Critically high <=[address] [facility] Comment on above: Performed By: #### C ANGELES, ELEC, AST, LIPID, BUN, ALT #### [facility] [address] [address] [address] Patricia Cifuentes Cholesterol in HDL [Mass/Vol] 47 mg/dL Normal [facility] Comment on above: Performed By: #### C ANGELES, ELEC, AST, LIPID, BUN, ALT #### [facility] [address] [place] [address] Dr. Patricia Cifuentes Cholesterol in LDL [Mass/Vol] 146.6 mg/dL Normal [facility] Comment on above: Performed By: #### C ANGELES, ELEC, AST, LIPID, BUN, ALT #### [facility] [address] [address] [address] Patricia Cifuentes Cholesterol.total/Ch olesterol in HDL [Mass ratio] 4.6 {ratio} Normal [facility] Comment on above: Performed By: #### C ANGELES, ELEC, AST, LIPID, BUN, ALT #### [facility] [address] [address] [address] Patricia Cifuentes HDL NORMAL > or = 60 mg/dl - LO W CARDIOVASCULAR RISK <40 mg/dl - HIGH CARDIOVASCULAR RISK Normal [facility] Comment on above: Performed By: #### C ANGELES, ELEC, AST, LIPID, BUN, ALT #### [facility] [address] [address] [address] Patricia Cifuentes LDL CALC NORMAL SEE BELOW Normal [facility] Comment on above: Result Comment: <100 mg/dl OPTIMAL 100 - 129 mg/dl NEAR OR ABOVE OPTIMAL 130 - 159 mg/dl BORDERLINE HIGH 160 - 189 mg/dl HIGH >190 mg/dl VERY HIGH Performed By: #### C ANGELES, ELEC, AST, LIPID, BUN, ALT #### [facility] [address] [address] [address] Patricia Cifuentes Triglyceride [Mass/Vol] 102 mg/dL Normal <=[address] [facility] Comment on above: Performed By: #### C ANGELES, ELEC, AST, LIPID, BUN, ALT #### [facility] [address] [address] [address] Patricia Cifuentes VLDL CALC 20.4 mg/dL Normal [facility] Comment on above: Performed By: #### C ANGELES, ELEC, AST, LIPID, BUN, ALT #### [facility] [address] [address] [address] Patricia Cifuentes SGMeaghann 06-06-2021 AST [Catalytic activity/Vol] 19 U/L Normal 17-[address] [facility] Comment on above: Performed By: #### C ANGELES, ELEC, AST, LIPID, BUN, ALT #### [facility] [address] [place] [address] Dr. Patricia Cifuentes [facility] 06-06-2021 ALT [Catalytic activity/Vol] 28 U/L Normal 21-72 [facility] Comment on above: Performed By: #### C ANGELES, ELEC, AST, LIPID, BUN, ALT #### [facility] [address] [place] [address] Dr. Patricia Cifuentes CBC AUTO DIFFon 12-24-2020 BASO # 0.0 103/ul Normal 0.0-0.1 [facility] Comment on above: Performed By: #### C ANGELES, ELEC, AST, LIPID, BUN, ALT #### [facility] [address] [place] [address] Dr. Patricia Cifuentes Basophils/100 WBC (Bld) 0.2 % Normal 0.2-2.0 [facility] Comment on above: Performed By: #### C ANGELES, ELEC, AST, LIPID, BUN, ALT #### [facility] [address] [place] [address] Dr. Patricia Cifuentes EO # 0.0 103/ul Normal 0.0-0.7 [facility] Comment on above: Performed By: #### C ANGELES, ELEC, AST, LIPID, BUN, ALT #### [facility] [address] [place] [address] Dr. Patricia Cifuentes Eosinophils/100 WBC (Bld) 0.2 % Critically low 0.9-7.0 [facility] Comment on above: Performed By: #### C ANGELES, ELEC, AST, LIPID, BUN, ALT #### [facility] [address] [place] [address] Dr. Patricia Cifuentes Erythrocyte distribution width (RBC) [Ratio] 12.8 % Normal 11.0-15.0 [facility] Comment on above: Performed By: #### C ANGELES, ELEC, AST, LIPID, BUN, ALT #### [facility] [address] [place] [address] Dr. Patricia Cifuentes Hematocrit (Bld) [Volume fraction] 43.7 % Normal 42.0-54.0 [facility] Comment on above: Performed By: #### C ANGELES, ELEC, AST, LIPID, BUN, ALT #### [facility] [address] [place] [address] Dr. Patricia Cifuentes Hemoglobin (Bld) [Mass/Vol] 14.6 g/dL Normal 14.0-18.[address] [facility] Comment on above: Performed By: #### C ANGELES, ELEC, AST, LIPID, BUN, ALT #### [facility] [address] [place] [address] Dr. Patricia Cifuentes IG # 0.02 10e3/ul Normal 0.00-0.[address] [facility] Comment on above: Performed By: #### C ANGELES, ELEC, AST, LIPID, BUN, ALT #### [facility] [address] [place] [address] Dr. Patricia Cifuentes IG % 0.4 % Normal 0.0-0.[address] [facility] Comment on above: Performed By: #### C ANGELES, ELEC, AST, LIPID, BUN, ALT #### [facility] [address] [place] [address] Dr. Patricia Cifuentes LYMPH # 0.9 103/ul Critically low 1.2-3.8 [facility] Comment on above: Performed By: #### C ANGELES, ELEC, AST, LIPID, BUN, ALT #### [facility] [address] [place] [address] Dr. Patricia Cifuentes Lymphocytes/100 WBC (Bld) 18.4 % Critically low 20.5-60.[address] [facility] Comment on above: Performed By: #### C ANGELES, ELEC, AST, LIPID, BUN, ALT #### [facility] [address] [place] [address] Dr. Patricia Cifuentes MANUAL DIFF REQ NO Normal [facility] Comment on above: Performed By: #### C ANGELES, ELEC, AST, LIPID, BUN, ALT #### [facility] [address] [place] [address] Dr. Patricia Cifuentes MCH (RBC) [Entitic mass] 30.9 pg Normal 25.9-34.[address] [facility] Comment on above: Performed By: #### C ANGELES, ELEC, AST, LIPID, BUN, ALT #### [facility] [address] [place] [address] Dr. Patricia Cifuentes MCHC (RBC) [Mass/Vol] 33.4 g/dL Normal 29.9-35.2 [facility] Comment on above: Performed By: #### C ANGELES, ELEC, AST, LIPID, BUN, ALT #### [facility] [address] [place] [address] Dr. Patricia Cifuentes MCV (RBC) [Entitic vol] 92.4 fL Normal 80.0-94.0 [facility] Comment on above: Performed By: #### C ANGELES, ELEC, AST, LIPID, BUN, ALT #### [facility] [address] [place] [address] Dr. Patricia Cifuentes MONO # 0.5 103/ul Normal 0.3-0.8 [facility] Comment on above: Performed By: #### C ANGELES, ELEC, AST, LIPID, BUN, ALT #### [facility] [address] [place] [address] Dr. Patricia Cifuentes Monocytes/100 WBC (Bld) 11.1 % Normal 1.7-12.0 [facility] Comment on above: Performed By: #### C ANGELES, ELEC, AST, LIPID, BUN, ALT #### [facility] [address] [place] [address] Dr. Patricia Cifuentes NEUT # 3.4 103/ul Normal 1.4-6.5 [facility] Comment on above: Performed By: #### C ANGELES, ELEC, AST, LIPID, BUN, ALT #### [facility] [address] [place] [address] Dr. Patricia Cifuentes Neutrophils/100 WBC (Bld) 69.7 % Normal 43.0-75.0 [facility] Comment on above: Performed By: #### C ANGELES, ELEC, AST, LIPID, BUN, ALT #### [facility] [address] [place] [address] Dr. Patricia Cifuentes Platelet mean volume (Bld) [Entitic vol] 9.1 fL Critically low 9.5-13.5 [facility] Comment on above: Performed By: #### C ANGELES, ELEC, AST, LIPID, BUN, ALT #### [facility] [address] [place] [address] Dr. Patricia Cifuentes PLT 169 103/ul Normal 150-[address] [facility] Comment on above: Performed By: #### C ANGELES, ELEC, AST, LIPID, BUN, ALT #### [facility] [address] [place] [address] Dr. Patricia Cifuentes RBC 4.73 106/ul Normal 4.70-6.[address] [facility] Comment on above: Performed By: #### C ANGELES, ELEC, AST, LIPID, BUN, ALT #### [facility] [address] [place] [address] Dr. Patricia Cifuentes WBC 4.9 103/ul Normal 4.0-11.[address] [facility] Comment on above: Performed By: #### C ANGELES, ELEC, AST, LIPID, BUN, ALT #### [facility] [address] [place] [address] Dr. Patricia Cifuentes PROF 14(COMP METB)on 021 Albumin [Mass/Vol] 3.1 g/dL Critically low 3.5-5.0 [facility] Comment on above: Performed By: #### C MP #### [facility] [address] [place] [address] Solo Flores Albumin/Globulin [Mass ratio] 0.7 {ratio} Normal [facility] Comment on above: Performed By: #### C MP #### [facility] [address] [place] [address] Solo Flores ALP [Catalytic activity/Vol] 96 U/L Normal 38-126 [facility] Comment on above: Performed By: #### C MP #### [facility] [address] [place] [address] Solo Flores ALT [Catalytic activity/Vol] 31 U/L Normal 21-[address] [facility] Comment on above: Performed By: #### C MP #### [facility] [address] [place], [place] [address] Solo Flores Anion gap [Moles/Vol] 11.2 mmol/L Normal [facility] Comment on above: Performed By: #### C MP #### [facility] [address] [place] [address] Solo Flores AST [Catalytic activity/Vol] 40 U/L Normal 17-[address] [facility] Comment on above: Performed By: #### C MP #### [facility] [address] [place] [address] Solo Flores Bilirubin [Mass/Vol] 0.9 mg/dL Normal 0.2-1.[address] [facility] Comment on above: Performed By: #### C MP #### [facility] [address] [place] [address] Solo Flores Calcium [Mass/Vol] 8.7 mg/dL Normal 8.4-10.2 [facility] Comment on above: Performed By: #### C MP #### [facility] [address] [place] [address] Solo Flores Chloride [Moles/Vol] 105 mmol/L Normal 98-[address] [facility] Comment on above: Performed By: #### C MP #### [facility] [address] [place] [address] Solo Flores CO2 [Moles/Vol] 30.0 mmol/L Normal 22.0-30.0 [facility] Comment on above: Performed By: #### C MP #### [facility] [address] [place] [address] Solo Flores Creatinine [Mass/Vol] 1.00 mg/dL Normal 0.66-1.[address] [facility] Comment on above: Performed By: #### C MP #### [facility] [address] [place] [address] Solo Flores EGFR-AF MALIAN >60 Normal >=60 [facility] Comment on above: Performed By: #### C MP #### [facility] [address] [place] [address] Solo Flores EGFR-NON AF MALIAN >60 Normal >=60 [facility] Comment on above: Performed By: #### C MP #### [facility] [address] [place], [place] [address] Solo Flores Globulin (S) [Mass/Vol] 4.2 g/dL Normal [facility] Comment on above: Performed By: #### C MP #### [facility] [address] [place], [place] [address] Solo Flores Glucose [Mass/Vol] 82 mg/dL Normal 74-106 [facility] Comment on above: Performed By: #### C MP #### [facility] [address] [place] [id number] Solo Flores Potassium [Moles/Vol] 4.2 mmol/L Normal 3.4-5.[address] [facility] Comment on above: Performed By: #### C MP #### [facility] [address] [place] [id number] Solo Flores Protein [Mass/Vol] 7.3 g/dL Normal 6.1-8.2 [facility] Comment on above: Performed By: #### C MP #### [facility] [address] [place] [id number] Solo Flores Sodium [Moles/Vol] 142 mmol/L Normal 137-145 [facility] Comment on above: Performed By: #### C MP #### [facility] [address] [place] [id number] Solo Flores Urea nitrogen [Mass/Vol] 13.0 mg/dL Normal 9.0-20.0 [facility] Comment on above: Performed By: #### C MP #### [facility] [address] [place] [id number] Solo Flores Urea nitrogen/Creatinine [Mass ratio] 13.0 mg/mg Normal [facility] Comment on above: Performed By: #### C MP #### [facility] [address] [place] [address] Solo Flores SYMPTOMATIC COVID-19 ANTIGEN on 12-24-2020 EUA Statement SEE BELOW Normal [facility] Comment on above: Result Comment: This test [...] ANGELES, ELEC, AST, LIPID, BUN, ALT #### [facility] [address] [place] [address] Dr. Patricia Cifuentes SARS-CoV-2 (COVID-19) RNA JÚNIOR+probe Ql (Unsp spec) Positive Critically abnormal NEGATIVE [facility] Comment on above: Performed By: #### C ANGELES, ELEC, AST, LIPID, BUN, ALT #### [facility] [address] [place] [address] [address] Patricia Cifuentes ALT (SGPT)on 04-12-2017 Alanine aminotransferase (ALT) 36 U/L Normal 10-52 [facility] Comment on above: Performed By: #### 1 [id number] ####[facility] [address] [place] [address] AST (SGOT)on 04-12-2017 Aspartate aminotransferase (AST) 25 U/L Normal 13-39 [facility] Comment on above: Performed By: #### 1 [id number] ####[facility] [address] [place] [address] Creatinineon 04-12-2017 Creatinine 0.91 mg/dL Normal 0.50-1.30 [facility] Comment on above: Performed By: #### 1 [id number] ####[facility] [address] [place] [address] eGFR (MDRD) mL/min/{1.73_m2} Normal [facility] Comment on above: Result Comment: Inte rpretation for Chronic Kidney Disease:Stages 1&2 >60 Healthy or potential kidney damage.Mild decrease of GFR.Stage 3 30-59 Moderate decrease of GFR.Stage 4 15-29 Severe decrease of GFR.Stage 5 <15 Kidney failure or on dialysis. Performed By: #### 1 [id number] ####[facility] [address] [place] [address] Electrolyte Panelon 04-12-20 17 Anion gap 11 mmol/L Normal 10-20 [facility] Comment on above: Performed By: #### 1 [id number] ####[facility] [address] [place] [address] Bicarbonate (HCO3) 27 mmol/L Normal 21-32 [facility] Comment on above: Performed By: #### 1 [id number] ####[facility] [address] [place] [address] Chloride 105 mmol/L Normal 98-107 [facility] Comment on above: Performed By: #### 1 [id number] ####[facility] [address] [place] [address] Potassium molar conc 4.1 mmol/L Normal 3.5-5.1 [facility] Comment on above: Performed By: #### 1 [id number] ####[facility] [address] [place] [address] Sodium 139 mmol/L Normal 136-145 [facility] Comment on above: Performed By: #### 1 [id number] ####[facility] [address] [facility] [place] [address] Lipid Panelon 04-12-2017 Cholesterol 119 mg/dL Normal <200 [facility] Comment on above: Performed By: #### 1 [id number] ####[facility] [address] [facility] [place] [address] Cholesterol in VLDL mass conc 14 mg/dL Normal <30 [facility] Comment on above: Performed By: #### 1 [id number] ####[facility] [address] [place] [address] Cholesterol to HDL Ratio 3.1 {ratio} Normal [facility] Comment on above: Performed By: #### 1 [id number] ####[facility] [address] [place] [address] HDL Cholesterol 39 mg/dL Abnormal [facility] Comment on above: Result Comment: Norm al Mod Risk High Risk5-9 >48 42-48 <4210- 14 >45 40-45 <4015-19 >38 34-38 <34Adult >39 Performed By: #### 1 [id number] ####[facility] [address] [place] [address] LDL Cholesterol 66 mg/dL Normal <130 [facility] Comment on above: Performed By: #### 1 [id number] ####[facility] [address] [place] [address] Triglyceride 70 mg/dL Normal <150 [facility] Comment on above: Result Comment: 150- 199 Borderline [id number] High>500 Very High Performed By: #### 1 [id number] ####[facility] [address] [place] [address] Urea Nitrogenon 04-12-2017 Urea nitrogen 12 mg/dL Normal 6-23 [facility] Comment on above: Performed By: #### 1 [id number] ####[facility] [address] [place] [address] SHOULDER RT 2 OR MORE VIEWSo n 02-15-2017 SHOULDER RT 2 OR MORE VIEWS DATE OF EXAM: Feb 15 2017 11:14AMCLINICAL HISTORY/ Name: CHET GLYNNBURSTUDY:SHOULDER RT 2 OR MORE VIEWS; 02/15/2017 11:14 amINDICATION:rt shoulder pain.COMPARISON:None.A CCESSION NUMBER(S):[id number] KIT CLINICIAN:JENNA FISHER:3 views of the right shoulder including AP , axillary and scapular Y-views were obtained.FINDINGS:Ther e is no radiographic evidence of acute fracture or dislocation identified. The joint spaces are well preserved without significant degenerative changes.CONCLUSION: IMPRESSION:1. No evidence of acute fracture or dislocation. Normal [facility] Vital Signs Date Time Vital Sign Value Performing Clinician Facility 10-31-2024 08:28-0400 Body height 176.5 cm Zaheer Epps MD Work Phone: [facility] 10-31-2024 08:28-0400 Body mass index (BMI) [Ratio] 26.05 kg/m2 Zaheer Epps MD Work Phone: [facility] 10-31-2024 08:28-0400 Body weight 81.19 kg Zaheer Epps MD Work Phone: [facility] 10-31-2024 08:28-0400 Diastolic blood pressure 78 mm[Hg] Zaheer Epps MD Work Phone: [facility] 10-31-2024 08:28-0400 Heart rate 84 /min Zaheer Epps MD Work Phone: [facility] 10-31-2024 08:28-0400 SaO2% (BldA) [Mass fraction] 98 % Zaheer Epps MD Work Phone: [facility] 10-31-2024 08:28-0400 Systolic blood pressure 130 mm[Hg] Zaheer Epps MD Work Phone: [facility] 01-17-2024 10:15-0400 Body height 172.7 cm Jose Carlos Webster MD Work Phone: [facility] 01-17-2024 10:15-0400 Body mass index (BMI) [Ratio] 30.26 kg/m2 Jose Carlos Webster MD Work Phone: [facility] 01-17-2024 10:15-0400 Body weight 90.27 kg Jose Carlos Webster MD Work Phone: [facility] 01-17-2024 10:15-0400 Diastolic blood pressure 72 mm[Hg] Jose Carlos Webster MD Work Phone: [facility] 01-17-2024 10:15-0400 Heart rate 62 /min Jose Carlos Webster MD Work Phone: [facility] 01-17-2024 10:15-0400 Systolic blood pressure 120 mm[Hg] Jose Carlos Webster MD Work Phone: [phone] [place] [address] 03-11-2023 13:57-0400 Body height 177.8 cm Jose Carlos Webster MD Work Phone: [facility] 03-11-2023 13:57-0400 Body mass index (BMI) [Ratio] 29.56 kg/m2 Jose Carlos Webster MD Work Phone: [facility] 03-11-2023 13:57-0400 Body weight 93.44 kg Jose Carlos Webster MD Work Phone: [facility] 03-11-2023 13:57-0400 Diastolic blood pressure 88 mm[Hg] Jose Carlos Webster MD Work Phone: [facility] 03-11-2023 13:57-0400 Heart rate 84 /min Jose Carlos Webster MD Work Phone: [facility] 03-11-2023 13:57-0400 Systolic blood pressure 110 mm[Hg] Jose Carlos Webster MD Work Phone: [facility] 01-29-2022 11:14-0400 Diastolic blood pressure 82 mm[Hg] Jenna Estevez [facility] 250 DO Work Phone: 01-29-2022 11:14-0400 Systolic blood pressure 132 mm[Hg] Jenna Brunnerp [facility] 250 DO Work Phone: 01-29-2022 10:36-0400 Body height 177.8 cm Jenna Estevez [facility] 250 DO Work Phone: 01-29-2022 10:36-0400 Body mass index (BMI) [Ratio] 30.28 kg/m2 Jenna Estevez [facility] 250 DO Work Phone: 01-29-2022 10:36-0400 Body surface area Derived from formula 2.14 m2 Jenna Estevez [facility] 250 DO Work Phone: 01-29-2022 10:36-0400 Body weight 95.71 kg Jenna Carmichael [facility] 250 DO Work Phone: 01-29-2022 10:36-0400 Diastolic blood pressure 92 mm[Hg] Jenna Carmichael [facility] 250 DO Work Phone: 01-29-2022 10:36-0400 Heart rate 60 /min Jenna Carmichael [facility] 250 DO Work Phone: 01-29-2022 10:36-0400 Systolic blood pressure 142 mm[Hg] Jenna Carmichael [facility] 250 DO Work Phone: 11-05-2021 15:17-0400 72 1 Jenna Carmichael [place] 250 DO Work Phone: Comment on above: [facility] 06-17-2021 08:07-0500 Body height 175.26 cm Jenna Carmichael [facility] 250 DO Work Phone: 06-17-2021 08:07-0500 Body mass index (BMI) [Ratio] 31.51 kg/m2 Jenna Carmichael [place] [facility] 250 DO Work Phone: 06-17-2021 08:07-0500 Body surface area Derived from formula 2.12 m2 Jenna Carmichael [place] [facility] 250 DO Work Phone: 06-17-2021 08:07-0500 Body weight 96.79 kg Jenna Carmichael [facility] 250 DO Work Phone: 06-17-2021 08:07-0500 Diastolic blood pressure 87 mm[Hg] Jenna Brunnerp [facility] 250 DO Work Phone: 06-17-2021 08:07-0500 Heart rate 66 /min Jenna Estevez [facility] 250 DO Work Phone: 06-17-2021 08:07-0500 Systolic blood pressure 137 mm[Hg] Jenna Estevez [facility] 250 DO Work Phone: 06-06-2021 09:18-0500 145.6 1 Jenna Estevez [facility] 250 DO Work Phone: Comment on above: FSLDL Encounters Encounter Date Encounter Type Care Provider Facility Start: 01-29-2025 End: 01-29-2025 ambulatory [facility] Ambulatory Start: 10-31-2024 End: 10-31-2024 Bamboo flowsheet Zaheer Epps MD Work Phone: [facility] Start: 10-31-2024 End: 10-31-2024 Bamboo flowsheet Zaheer Epps MD Work Phone: [facility] Start: 10-31-2024 End: 10-31-2024 Patient encounter procedure Zaheer Epps MD Work Phone: [facility] Comment on above: Encounter for Medica re annual wellness exam (Primary Dx); Advance directive discussed with patient; Encounter for screening for other disorder; Screening for alcohol problem; Screening for diabetes mellitus (DM); Encounter for screening for malignant neoplasm of colon; Venous stasis; Noncompliance with medication regimen Start: 10-31-2024 End: 10-31-2024 ambulatory ZAHEER EPPS Not Available Start: 01-17-2024 End: 01-17-2024 Office outpatient visit 25 minutes Jose Carlos Webster MD Work Phone: [facility] Comment on above: Atherosclerosis of c oronary artery, unspecified vessel or lesion type, unspecified whether angina present, unspecified whether little traverse or transplanted heart; Hyperlipidemia, unspecified hyperlipidemia type; History of PTCA 2; History of CA (myocardial infarction); BMI 30.0-30.9,adult; Primary hypertension; Never smoked tobacco Start: 01-14-2024 End: 01-14-2024 Clinisync Result Encounter Zaheer Epps MD Work Phone: [facility] External Department Unsolicited Start: 01-14-2024 End: 01-14-2024 Clinisync Result Encounter Zaheer Epps MD Work Phone: [facility] External Department Unsolicited Start: 11-30-2023 End: 11-30-2023 ambulatory ZAHE[facility] EPPS Not Available Start: 03-11-2023 End: 03-11-2023 Office outpatient visit 15 minutes Jose Carlos Webster MD Work Phone: [facility] Comment on above: Atherosclerosis of c oronary artery, unspecified vessel or lesion type, unspecified whether angina present, unspecified whether little traverse or transplanted heart; History of CA (myocardial infarction); History of PTCA 2; Hyperlipidemia, unspecified hyperlipidemia type Start: 12-23-2022 Rx Renewal [facility]stevez [facility] Work Phone: Start: 01-29-2022 Office outpatient vi sit 15 minutes [facility] Work Phone: Start: 01-29-2022 Patient encounter procedure Jenna Estevez [facility] 250 DO Work Phone: Start: 01-29-[address] Jenna Estevez Facility: Start: 01-14-2022 AUDIT Jenna Estevez [facility] 250 DO Work Phone: Start: 11-26-2021 Rx Renewal Jenna Estevez [facility] 250 DO Work Phone: Start: 11-05-2021 End: 11-06-[address] FRANKI LEON Facility: Start: 06-17-2021 Office outpatient vi sit 25 minutes Jenna Estevez [facility] 250 DO Work Phone: Start: 06-17-[address] Jenna Estevez Facility:[id number] Start: 06-06-2021 End: 06-07-[address] FRANKI LEON Facility:H1 Start: 05-29-2021 AUDIT Jenna Estevez [facility] 600 DO Work Phone: Start: 12-24-2020 End: 12-24-[address] DOCTOR SHANNON Facility:H1 Start: 04-12-2017 Ambulatory FRANKI LEON Facility :[id number] Start: 02-15-2017 Ambulatory JENNA ARNOLD Facility:[id number] Procedures Date Procedure Procedure Detail Performing Clinician Start: 01-14-2024 ALL LIPID PROFILE (FASTING) Zaheer Epps MD Work Phone: Start: 01-14-2024 [facility] CMP (CMP) (FOR REMOTE [facility] USE) Zaheer Epps MD Work Phone: Start: 02-15-2023 History of percutane ous transluminal coronary angioplasty History of PTCA 2 Jose Carlos Webster MD Work Phone: Ankle Surgery Jenna Estevez Cath Stent Placement Number Of Stents Placed: Jenna Estevez History of percutane ous transluminal coronary angioplasty History of PTCA 2 Jose Carlos Webster MD Work Phone: History of percutane ous transluminal coronary angioplasty History of PTCA 2 Jose Carlos Webster MD Work Phone: Percutaneous transluminal coronary angioplasty Jenna Estevez Surgical procedure Jenna Estevez Comment on above: history of stent ind ications; NEGATED: Highlighted row has not occurred! Total colonoscopy Jenna Estevez Plan of Treatment Date Care Activity Detail Author Start: 12-27-2033 DTaP/Tdap/Td Vaccine s (2 - Td or Tdap) DTaP/Tdap/Td Vaccines (2 - Td or Tdap) [facility] Start: 10-31-2025 Medicare Annual Wellness (AWV) Medicare Annual Wellness (AWV) [facility] Start: 10-31-2025 Screening for malign ant neoplasm of colon Colorectal Cancer Screening [facility] Comment on above: Postponed from 03/12 (Patient Refused) Start: 01-22-2025 End: 01-22-2025 Patient encounter procedure 01/22/2025 9:00 AM EDT Office Visit [facility] [address] [facility] [address] [place] [id number] Jose Carlos Webster MD [address] [facility] [address] [place] [address] [facility] Start: 01-08-2025 Influenza vaccination Influenz a Vaccine (Season Ended) [facility] Start: 11-29-2024 Medicare Annual Wellness (AWV) Medicare Annual Wellness (AWV) [facility] Start: 10-31-2024 End: 10-31-2024 Patient encounter procedure 10/31/2024 8:30 AM EDT Office Visit [facility] [address] [facility] [address] [place] [address] Zaheer Epps MD [address] [facility] [address] [place] [address] Encounter for Medicare annual wellness exam; Advance directive discussed with patient; Encounter for screening for other disorder; Screening for alcohol problem; Screening for diabetes mellitus (DM); Screening for lipid disorders; Encounter for screening for malignant neoplasm of colon [facility] 100 Comment on above: Encounter for Medica annual wellness exam; Advance directive discussed with patient; Encounter for screening for other disorder; Screening for alcohol problem; Screening for diabetes mellitus (DM); Screening for lipid disorders; Encounter for screening for malignant neoplasm of colon Start: 09-26-2024 Screening for malign ant neoplasm of colon [facility] Start: 01-17-2024 End: 01-16-2025 Comprehensive metabolic 2000 panel - Serum or Plasma Comprehensive Metabolic Panel Lab Routine Atherosclerosis of coronary artery, unspecified vessel or lesion type, unspecified whether angina present, unspecified whether little traverse or transplanted heart History of PTCA 2 Primary hypertension Expected: 01/17/2024, Expires: 01/16/2025 [facility] Work Phone: Comment on above: Expected: 01/17/2024 , Expires: 01/16/2025 Start: 01-17-2024 End: 01-16-2025 Lipid 1996 panel - Serum or Plasma Lipid Panel Lab Routine Hyperlipidemia, unspecified hyperlipidemia type Expected: 01/17/2024, Expires: 01/16/2025 [facility] Work Phone: Comment on above: Expected: 01/17/2024 , Expires: 01/16/2025 Start: 01-17-2024 End: 01-17-2024 Patient encounter procedure 01/17/2024 10:15 AM EDT Office Visit [facility] [address] [facility] [address] [place] [address] Jose Carlos Webster MD [address] [facility] [address] [place], [place] [id number] [facility] Start: 01-09-2024 COVID-19 Vaccine ( season) COVID-19 Vaccine ( season) [facility] Start: 01-09-2024 Influenza vaccination Influenza Vacc ine (#1) [facility] Start: 12-10-2023 End: 03-11-2024 Comprehensive metabolic 2000 panel - Serum or Plasma Comprehensive Metabolic Panel Lab Routine Atherosclerosis of coronary artery, unspecified vessel or lesion type, unspecified whether angina present, unspecified whether little traverse or transplanted heart Hyperlipidemia, unspecified hyperlipidemia type Expected: 12/10/2023 (Approximate), Expires: 03/11/2024 [facility] Work Phone: Comment on above: Expected: 12/10/2023 (Approximate), Expires: 03/11/2024 Start: 12-10-2023 End: 03-11-2024 Lipid 1996 panel - Serum or Plasma Lipid Panel Lab Routine Atherosclerosis of coronary artery, unspecified vessel or lesion type, unspecified whether angina present, unspecified whether little traverse or transplanted heart Hyperlipidemia, unspecified hyperlipidemia type Expected: 12/10/2023 (Approximate), Expires: 03/11/2024 [facility] Work Phone: Comment on above: Expected: 12/10/2023 (Approximate), Expires: 03/11/2024 Start: 01-25-2023 FUV, Provider: Jose Carlos Webster, Status: Pen, Time: 9:45 AM FUV, Provider: Jose Carlos Webster, Status: Pen, Time: 9:45 AM [facility] 250 DO Work Phone: Start: 01-08-2023 Influenza vaccination Influenza Vacc ine (#1) [facility] Start: 01-29-2022 FUV, Provider: Jose Carlos Webster, Status: Pen, Time: 10:45 AM FUV, Provider: Jose Carlos Webster, Status: Pen, Time: 10:45 AM [facility] 250 DO Work Phone: Start: 12-22-2021 Screening for malign ant neoplasm of colon [facility] Start: 12-09-2021 FUV, Provider: Franki Leon, Status: Pen, Time: 8:45 AM FUV, Provider: Franki Leon, Status: Pen, Time: 8:45 AM [facility] 250 DO Work Phone: Start: 06-17-2021 FUV, Provider: Franki Leon, Status: Pen, Time: 8:15 AM FUV, Provider: Franki Leon, Status: Pen, Time: 8:15 AM [facility] Work Phone: Start: 2016 RSV patient s and/or patients aged 60+ years (1 - 1-dose 60+ series) RSV patients and/or patients aged 60+ years (1 - 1-dose 60+ series) [facility] Start: 2006 Zoster Vaccines (1 o f 2) Zoster Vaccines (1 of 2) [facility] Start: 1978 DTaP/Tdap/Td Vaccine s (1 - Tdap) DTaP/Tdap/Td Vaccines (1 - Tdap) [facility] Start: 1974 Diabetes mellitus screening Diabetes Screening [facility] Start: 1974 Hepatitis C screening Hepatitis C Sc reening [facility] Start: 1962 Pneumococcal Vaccine : 65+ Years (1 - PCV) Pneumococcal Vaccine: 65+ Years (1 - PCV) [facility] Start: 1962 Pneumococcal Vaccine : 65+ Years (1 of 2 - PCV) Pneumococcal Vaccine: 65+ Years (1 of 2 - PCV) [facility] Start: 1956 COVID-19 Vaccine (#1) COVID-19 Vacci ne (#1) [facility] Start: 1956 Lipid panel Lipid Panel [facility] Start: 1956 Medicare Annual Wellness Visit Medicare Annual Wellness Visit (AWV) [facility] Start: 1956 Screening for malign ant neoplasm of colon [facility] Immunizations Immunization Date Immunization Notes Care Provider Fa cility 12-28-2023 tetanus toxoid, redu everardo diphtheria toxoid, and acellular pertussis vaccine, adsorbed Zaheer Epps MD Work Phone: [facility] Payers Date Payer Category Payer Medicare (Managed Care) [facility] [id number] 2022 Unknown 2022 Unknown [id number] 2022 Medicaid MEDICAID MEDICAI D [id number] 2022-Present [address] [place] [address] [id number] 1959 Unknown [id number] 1959 Unknown [id number] 1956 Unknown [id number] 1956 Unknown [id number] 1956 Unknown [id number] 1956 Unknown [id number] 1956 Unknown [id number] 1956 Unknown [id number] 1956 Unknown [id number] [id number] 1956 Unknown [id number] Medicaid [id number] Medicare [id number] Social History Date Type Detail Facility Start: 03-11-2023 End: 10-25-2024 No illicit drug use No illicit drug use [facility] 600 DO Work Phone: Comment on above: 8 cups of coffee per day.; Start: 03-11-2023 End: 11-30-2023 Tobacco smoking status NHIS Never smoked tobacco [facility] Work Phone: Start: 03-11-2023 End: 11-30-2023 Tobacco use and exposure Smokeless tobacco non-user [facility] Work Phone: Start: 03-11-2023 End: 10-31-2024 Alcohol intake Current drinker of alcohol (finding) [facility] Work Phone: Start: 03-11-2023 End: 10-25-2024 Tobacco use panel [facility] Work Phone: Start: 1955 Sex Assigned At Not on file [facility] Work Phone: Start: 03-01-2023 End: 01-17-2024 Exposure to SARS-CoV-2 (event) Not sure [facility] Start: 01-17-2024 Alcohol Comment occ [facility] Work Phone: How often do you nee d to have someone help you when you read instructions, pamphlets, or other written material from your doctor or pharmacy [SILS] Rarely [facility] Within the last year , have you been afraid of your partner or ex-partner? No [facility] How often do you get together with friends or relatives? Patient declined [facility] Do you belong to any clubs or organizations such as denominational groups, unions, fraternal or athletic groups, or school groups? Yes [facility] How often to you hav e a drink containing alcohol? 2-3 time sa week [facility] How many standard dr inks containing alcohol do you have on a typical day? 1 or 2 [facility] How often do you hav e 6 or more drinks on 1 occasion? Never [facility] How hard is it for y ou to pay for the very basics like food, housing, medical care, and heating Somewhat hard [facility] Do you feel stress - tense, restless, nervous, or anxious, or unable to sleep at night because your mind is troubled all the time - these days [OSQ] To some extent [facility] (I/We) worried wheth er (my/our) food would run out before (I/we) got money to buy more. Sometimes true [facility] Functional Status Date Assessment Result Facility 10-31-2024 Patient Health Quest ionnaire 2 item (PHQ-2) [Reported] [facility] Clinical Notes 06-10-2015 to 10-31-2024 Zaheer Epps MD - 10/31/2024 8:30 AM Rodger Webster MD - 01/17/2024 10:15 AM EDTPatient InstructionsJose Carlos Webster MD - 03/11/2023 2:15 PM EDTPatient Instructions Note Date & Type Note Facility 10-31-2024 History of Present illness Narrative Images from the original note were not included. Alex Glynn Jr is a 69 y.o. male presents with chief complaint of Annual Exam HPI: History of Present Illness I have reviewed and reconciled the history and medication list with the patient today. CURRENT PCP/CARE TEAM: Patient Care Team: Zaheer Epps MD as PCP - General (Family Medicine) Zaheer Epps MD as PCP - [facility] Risk Assessment Form Do you need help eating, bathing, using the toilet, dressing, or getting around your home?: No Can you prepare your own meals?: Yes Can you do your own housework without help?: Yes Can you shop for groceries or clothes without help?: Yes Do you exercise for about 20 minutes 3 or more days a week?: Yes How confident are you that you can control and manage most of your health problems?: Very confident Can you mange your money, credit cards and accounts, pay bills and taxes?: Yes Vision Screening: Yes, patient was advised to have yearly eye exam Hearing Screening: Not done Cognitive Screening Self Assessment: No concerns rasied by family members, friends, or caretakers HISTORIES: PAST MEDICAL HISTORY: History reviewed. No pertinent past medical history. SURGICAL HISTORY: Past Surgical History: Procedure Laterality Date CORONARY ANGIOPLASTY WITH STENT PLACEMENT 2013 SOCIAL HISTORY: Social History Tobacco Use Smoking status: Never Smokeless tobacco: Never Vaping Use Vaping status: Never Used Substance Use Topics Alcohol use: Yes Drug use: Never Depression: Not at risk (11/30/2023) PHQ-2 PHQ-2 Score: 2 FAMILY HISTORY: No family history on file. MEDICATIONS: Current Outpatient Medications Medication Instructions aspirin 81 mg, Daily RT atorvastatin (LIPITOR) 80 mg, Daily carvedilol (COREG) 6.25 mg, 2 times daily with meals oxyCODONE-acetaminophen (Percocet) 5-325 MG tablet 1 tablet, Every 6 hours triamcinolone (Kenalog) 0.1 % ointment Topical, 2 times daily ALLERGIES: Allergies Allergen Reactions Fish Oil Swelling PHYSICAL EXAM: Visit Vitals BP 130/78 Pulse 84 Ht 5' 9.5 Wt 179 lb SpO2 98% BMI 26.05 kg/m Smoking Status Never BSA 2 m BP Readings from Last 3 Encounters: 10/31/24 130/78 11/30/23 140/90 09/16/22 122/76 Wt Readings from Last 3 Encounters: 10/31/24 179 lb 11/30/23 202 lb 8 oz 09/16/22 207 lb Physical Exam The patient is pleasant and in no acute distress. The head is normocephalic and atraumatic. Both eyes appear grossly normal without obvious lid pathology or icterus. Both ears hearing is grossly intact. The neck is supple and trachea is midline. No masses are appreciated. The anterior cervical lymphatics demonstrates shoddy bilateral nontender lymphadenopathy. There is no supraclavicular lymphadenopathy. The heart is regular rate and rhythm without S3, S4. No murmur. The patient has normal respiratory pattern. The breath sounds are symmetrical without evidence of rhonchi or rales. No wheezing. The skin is warm and dry. The lower extremities have trace edema. There some mild varicosities. Especially the right leg has violaceous area which is dry with some evidence of excoriations. Neurologic screening exam is nonfocal. The patient is alert. There is no overt gross evidence of cognitive impairment The patient has good eye contact and speech is clear. Appropriate affect. Patient declined digital rectal examination Results ASSESSMENT AND PLAN: Assessment/Plan 1. Encounter for Medicare annual wellness exam (Primary) The patient is here for their Annual Medicare Wellness visit. Demographics were updated. Self-assessment was completed and reviewed. Past medical, family, and social history were updated. The medication list updated and reviewed by the doctor. A list of other current medical providers is established and updated. Time was spent discussing health maintenance issues, ordering testing as appropriate, and a schedule was reviewed regarding recommended screening. We discussed safety issues and fall risk. Depression screening was completed and addressed as appropriate. Fall screening was completed and addressed. Cognitive function was assessed by direct observation, cognitive screening as indicated, and assessment of ability to perform ADL's. The BMI and discussed. Major risk factors for chronic disease including family history were discussed. An after visit summary is made available to the patient 2. Advance directive discussed with patient Patient voluntarily agreed to discuss advance care planning at today's wellness visit. We discussed that an advance directive is a legal document that only goes into effect if the patient is incapacitated and unable to speak for themselves. This would help us to decide what care the patient would want. We discussed emergency treatments to keep the patient alive such as CPR, ventilator use and concept of comfort. We discussed how patients could make their wishes known through a living will, durable power of assistant prosecuting attorney for healthcare, or other advanced directives. We discussed telling beth people about their advance and a copy will be kept in the EHR. I discussed that they should also make me an emergency contact in their cell phone, and/or notify their POA that I have a copy of the advanced directives. 3. Encounter for screening for other disorder Chronically insignificant depression screening 4. Screening for alcohol problem Negative alcohol screening 5. Screening for diabetes mellitus (DM) Patient declined laboratory evaluation 6. Encounter for screening for malignant neoplasm of colon Patient declined both colonoscopy and Cologuard. Patient understands the importance of early intervention. Also noted a patient declined the digital rectal examination or the PSA test. 7. Venous stasis Chronic problem with an acute exacerbation. - triamcinolone (Kenalog) 0.1 % ointment; Apply topically in the morning and before bedtime. Dispense: 45 g; Refill: 1 8. Noncompliance with medication regimen Patient notes that he specifically ran out of his medicines. He chose not to call his extension supervisor. He does ultimately have an appointment for follow-up scheduled in January. I did encourage him to at least restart some sort of statin medication. He declined and stated he will wait to talk with the extension supervisor. documented in this encounter [facility] 01-17-2024 History of Present illness Narrative Most recently seen March 2023. Subjective : Interval review of systems is negative for chest discomfort pressure tightness heaviness palpitations lightheadedness orthopnea paroxysmal nocturnal dyspnea dependent edema or claudication TIA or CVA type symptoms or bleeding diathesis Was seen in [place] emergency department after some heavy object fell on his head, he said he had to have paolo put in. No headache or diplopia. Averages 10,000 steps daily. History so Far : 1. Hypertension-at target, continue carvedilol at current doses 2. Atherosclerotic little traverse vessel coronary artery disease, status post PCI [...] Objective Wt Readings from Last 3 Encounters: 01/17/24 90.3 kg (199 lb) 03/11/23 93.4 kg (206 lb) 01/29/22 95.7 kg (211 lb) Vitals: 01/17/24 1015 BP: 120/72 BP Location: Left arm Patient Position: Sitting Pulse: 62 Weight: 90.3 kg (199 lb) Height: 1.727 m (5' 8 ) Physical Exam: GENERAL APPEARANCE: in no acute distress. CHEST: Symmetric and non-tender. INTEGUMENT: Skin warm and dry HEENT: No gross abnormalities identified.No pallor or scleral icterus. Well-healed paolo to the right of the midline towards the frontal area of scalp. NECK: Supple, no JVD, no bruit. NEURO/PSHCY: [...] Allergies Allergen Reactions Tuna Oil Swelling LABS: laboratory data available is from January 2023 at which time sodium was 140 potassium 4.2 GFR greater than 60 liver enzymes normal. January 2024-sodium 143 potassium 4.8 GFR greater than 60 liver enzymes normal total cholesterol 130 HDL 51 LDL 67 triglycerides 58 Assessment: 1. Atherosclerosis of coronary artery, unspecified vessel or lesion type, unspecified whether angina present, unspecified whether little traverse or transplanted heart Follow Up In Cardiology Follow Up In Cardiology Comprehensive Metabolic Panel carvedilol (Coreg) 6.25 mg tablet Comprehensive Metabolic Panel 2. Hyperlipidemia, unspecified hyperlipidemia type Lipid Panel atorvastatin (Lipitor) 80 mg tablet Lipid Panel 3. History of PTCA 2 Comprehensive Metabolic Panel atorvastatin (Lipitor) 80 mg tablet Comprehensive Metabolic Panel 4. History of CA (myocardial infarction) 5. BMI 30.0-30.9,adult 6. Primary hypertension Comprehensive Metabolic Panel Comprehensive Metabolic Panel 7. Never smoked tobacco Doing well clinically. Continue current medications Follow up : 1 year Provider Attestation - Scribe documentation All medical record entries made by the Scribe were at my direction and personally dictated by me. I have reviewed the chart and agree that the record accurately reflects my personal performance of the history, physical exam, discussion and plan. Scribe Attestation By signing my name below, I, Sonny De LPN attest that this documentation has been prepared under the direction and in the presence of Jose Carlos Webstre MD. documented in this encounter [facility] Work Phone: 01-17-2024 Instructions Lesley Rodríguez LPN - 01/17/2024 10:15 AM EDT Please bring all medicines, vitamins, and herbal supplements with you when you come to the office. Prescriptions will not be filled unless you are compliant with your follow up appointments or have a follow up appointment scheduled as per instruction of your physician. Refills should be requested at the time of your visit. BMI was above normal measurement. Current weight: 90.3 kg (199 lb) Weight change since last visit (-) denotes wt loss -7 lbs Weight loss needed to achieve BMI 25: 34.9 Lbs Weight loss needed to achieve BMI 30: 2.1 Lbs Advised to Increase physical activity. documented in this encounter [facility] Work Phone: 03-11-2023 History of Present illness Narrative 1 [...] continue carvedilol at current doses 2. Atherosclerotic little traverse vessel coronary artery disease, status post PCI [...] Atherosclerosis of coronary artery 02/15/2023 History of CA (myocardial infarction) 02/15/2023 History of PTCA 2 [...] Carlos Webster MD documented in this encounter [facility] Work Phone: 03-11-2023 Instructions Reji Saleem MA - 03/11/2023 [...] of your visit. documented in this encounter [facility] Work Phone: 06-10-2021 History of Present illness Narrative Patient is new to this provider, he has atherosclerotic little traverse vessel coronary artery disease and risk factors, [...] target, continue carvedilol at current doses2. Atherosclerotic little traverse vessel coronary artery disease, status post PCI [...] next visit4. Heart healthy lifestyle was encouraged -[facility] 250 DO Work Phone: 06-10-2015 History of Present illness Narrative Mr. Glynn is a 66-year-old male who is seen today for follow-up on his history of coronary disease. He presented in June 2015 with chest pain while he was on a cruise ship in [place]. He was initially life flighted to [place] and then eventually life flighted to [facility]. While there he underwent cardiac catheterization and [...] to return in 6 months for follow-up. [facility] 250 DO Work Phone: Evaluation note Diagnosis Atherosclerosis of coronary artery, unspecified vessel or lesion type, unspecified whether angina present, unspecified whether little traverse or transplanted heart History of CA (myocardial infarction) Old myocardial infarction History of PTCA 2 Hyperlipidemia, unspecified hyperlipidemia type documented in this encounter [facility] Work Phone: Evaluation note* Diagnosis Atherosclerosis of coronary artery, unspecified vessel or lesion type, unspecified whether angina present, unspecified whether little traverse or transplanted heart Hyperlipidemia, unspecified hyperlipidemia type History of PTCA 2 History of CA (myocardial infarction) Old myocardial infarction BMI 30.0-30.9,adult Primary hypertension Unspecified essential hypertension Never smoked tobacco documented in this encounter [facility] Work Phone: Evaluation note* Diagnosis Encounter for Medicare annual wellness exam- Primary Advance directive discussed with patient Encounter for screening for other disorder Screening for alcohol problem Screening for alcoholism Screening for diabetes mellitus (DM) Screening for diabetes mellitus Encounter for screening for malignant neoplasm of colon Venous stasis Unspecified venous (peripheral) insufficiency Noncompliance with medication regimen Personal history of noncompliance with medical treatment, presenting hazards to health [facility] Consultation (Routine) - Authorized Specialty Diagnoses / Procedures Referred By Contac t Referred To Contact Cardiology Diagnoses Atherosclerosis of coronary artery, unspecified vessel or lesion type, unspecified whether angina present, unspecified whether little traverse or transplanted heart Procedures Follow Up In Cardiology Jose Carlos Webster MD [address] [facility] [address] [place] [address] Jose Carlos Webster MD [address] [facility] [address] [place] [address] Referral ID Status Reason Start Date Expiration Date V isits Requested Visits Authorized [id number] Authorized 03/11/2023 03/10/2024 1 1 [facility] Work Phone: Reason for referral (narrative)* Consultation (Routine) - Authorized Specialty Diagnoses / Procedures Referred By Contac t Referred To Contact Cardiology Diagnoses Atherosclerosis of coronary artery, unspecified vessel or lesion type, unspecified whether angina present, unspecified whether little traverse or transplanted heart Procedures Follow Up In Cardiology Jose Carlos Webster MD [address] [place] [id number] Jose Carlos Webster MD [address] [place] [id number] Referral ID Status Reason Start Date Expiration Date V isits Requested Visits Authorized [id number] Authorized 01/17/2024 01/16/2025 1 1 [facility] Work Phone: Summary Purpose Family History No [...] FoundNo Advanced Directives Records Found Chief Complaint ALEX GLYNN is being seen for a 6 month follow-up of.ALEX GLYNN is being seen for a 6 month follow-up of.ALEX GLYNN is being seen for a 6 month follow-up of. Additional Source Comments (unrecognized sect ion and content) No Status Records FoundNo Status Records FoundNo Status Records FoundNo Status Records FoundNo Status Records FoundNo Status Records Found INFORMATION SOURCE (unrecogn ized section and content) DATE CREATED AUTHOR 11/02/2017 [facility] DATE CREATED AUTHOR AUTHOR'S ORGANIZ ATION 11/08/2021 [facility] DATE CREATED AUTHOR AUTHOR'S ORGANIZ ATION 02/18/[address] [facility] DATE CREATED AUTHOR AUTHOR'S ORGANIZ ATION 03/03/2022 [employer] DATE CREATED AUTHOR AUTHOR'S ORGANIZ ATION 11/01/2024 [facility] EPIC DATE CREATED AUTHOR AUTHOR'S ORGANIZ ATION 01/30/2025 [facility] Reason for Visit (unrecogniz ed section and content) Reason Comments Annual Exam 1yr Reason Comments Follow-up 9m Specialty Diagnoses / Procedures Referred By Contac t Referred To Contact Cardiology Diagnoses Atherosclerosis of coronary artery, unspecified vessel or lesion type, unspecified whether angina present, unspecified whether little traverse or transplanted heart Procedures Follow Up In Cardiology Jose Carlos Webster MD [address] [place] [id number] Jose Carlos Webster MD [address] [place] [id number] Referral ID Status Reason Start Date Expiration Date V isits Requested Visits Authorized [id number] Authorized 03/11/2023 03/10/2024 1 1 Reason Comments Annual Exam Care Teams (unrecognized sec tion and content) [employer] Operator Relationship Specialty Start Date End Date Zaheer Epps MD [address] [place] [id number] PCP - General Family Medicine 03/11/23 [employer] Operator Relationship Specialty Start Date End Date Zaheer Epps MD [address] [place] [address] PCP - General Family Medicine 03/11/23 [employer]iser Operator Relationship Specialty Start Date End Date Zaheer Epps MD [address] [place] [address] (Fax) PCP - Devoted 05/10/22 Zaheer Epps MD [address] [place] [address] (Fax) PCP - General Family Medicine 09/15/22 [employer] Gate [employer]iser Operator Relationship Specialty Start Date End Date Zaheer Epps MD [address] [facility] [address] [place] [address] (Fax) PCP - Devoted 05/10/22 Zaheer Epps MD [address] [place] [address] (Fax) PCP - General Family Medicine 09/15/22 [employer] Operator Relationship Specialty Start Date End Date Zaheer Epps MD [address] [facility] [address] [place] [address] (Fax) PCP - Devoted 05/10/22 Zaheer Epps MD [address] [facility] [address] [place] [address] (Fax) PCP - General Family Medicine 09/15/22 Jose Carlos Webster MD [address] [place] [address] 2, [address] [place] [address] Referring Physician Cardiology 10/31/24 FOR RECORDS PERTAINING TO PATIENTS WHO ARE [...] BE BASED ON THE PRIMARY CLINICAL RECORDS. [facility]. provides no warranty or guarantee of the accuracy or completeness of information in this document.
[2025-01-30 08:14] LABS: Alanine Aminotransferase 20 U/L (16-63); Aspartate Amino Transferase 20 U/L (15-37); Cholesterol 215 mg/dL (<=200); HDL Cholesterol 50 mg/dL (40-60); Triglycerides 107 mg/dL (<=150); VLDL CHOLESTEROL 21.4 mg/dL
== END 2025-01-30 07:04 | disposition home or self-care (01) ==
LOC: LAB 07:06
PROVIDERS: PCP Family Medicine; Visit Provider Internal Medicine Interventional Cardiology
DX: I25.10 Atherosclerotic heart disease of native coronary artery without angina pectoris (principal); E78.5 Hyperlipidemia, unspecified
CPT/HCPCS: 36415; 80061; 84450; 84460